=== PATIENT | male | born 1970 | race American Indian/Alaskan Native ===

== ENCOUNTER 2020-12-12 07:27 | Inpatient (IN) | payer OTHER, SELFPAY ==
--- NOTE | 2020-12-12 07:44 | Emergency Department Report ---
ED Shortness of Breath HPI - General Stated Complaint: COVID Time Seen by Provider: 12/12/20 07:31 - History of Present Illness Initial Comments: Patient presents with chest pain shortness of breath. EMS transported him here due to this. He was diagnosed with Covid approximately 2 weeks ago. Patient states that over the last day or 2 he has had substernal chest pain. It is sharp and stabbing. It is pleuritic in nature. The pain does not radiate or migrate. He has had no ongoing cough. Patient states that he just does not feel well. He has no history of recent travel or trauma. There is no pain or swelling in the legs. He has no other complaints other than the chest pain or shortness of breath. He has not noticed any aggravating or alleviating factors other than inspiration. - Related Data Previous Rx's Medication Instructions Recorded Last Taken Type Ibuprofen [Motrin] 600 mg PO Q8H PRN #20 tablet 12/12/20 Unknown Rx Allergies Allergy/AdvReac Type Severity Reaction Status Date / Time No Known Allergies Allergy Unverified 12/12/20 07:49 ED Review of Systems ROS: Stated complaint: COVID Other details as noted in HPI Comment: All other systems reviewed and negative Constitutional: denies: fever Eyes: denies: eye pain ENT: denies: throat pain Respiratory: denies: cough Cardiovascular: as per HPI Endocrine: denies: unexplained weight loss Gastrointestinal: denies: abdominal pain Genitourinary: denies: dysuria Musculoskeletal: denies: back pain Skin: denies: rash Neurological: denies: headache Hematological/Lymphatic: denies: easy bruising ED Past Medical Hx - Past Medical History Previous Medical History?: No - Family History Family history: no significant - Medications Home Medications: Home Medications Medication Instructions Recorded Confirmed Last Taken Type Ibuprofen [Motrin] 600 mg PO Q8H PRN #20 tablet 12/12/20 Unknown Rx ED Physical Exam - General Limitations: No Limitations, Other (Pulse ox is noted and normal. Is not hypox ic.) General appearance: alert, in distress (Mild) - Head Head exam: Present: atraumatic, normocephalic, normal inspection - Eye Eye exam: Present: normal appearance, EOMI. Absent: scleral icterus - ENT ENT exam: Present: normal exam, normal orophraynx, normal external ear exam - Neck Neck exam: Present: normal inspection. Absent: meningismus - Respiratory Respiratory exam: Present: normal lung sounds bilaterally. Absent: respiratory distress, chest wall tenderness - Cardiovascular Cardiovascular Exam: Present: regular rate, normal rhythm - GI/Abdominal GI/Abdominal exam: Present: soft. Absent: distended, tenderness - Extremities Exam Extremities exam: Present: normal capillary refill. Absent: pedal edema, calf tenderness - Back Exam Back exam: Absent: CVA tenderness (R), CVA tenderness (L) - Neurological Exam Neurological exam: Present: alert, oriented X3, CN II-XII intact, normal gait. Absent: motor sensory deficit - Psychiatric Psychiatric exam: Present: normal affect, normal mood - Skin Skin exam: Present: warm, dry ED Course - Reevaluation(s) Reevaluation #1: 12/12/20 07:44 IV and labs ordered. Reevaluation #2: 12/12/20 09:[address] was ordered. Reevaluation #3: 12/12/20 12:38 CT was noted. ED Medical Decision Making - Lab Data Result diagrams: 12/12/20 08:31 12/12/20 08:31 - EKG Data -: EKG Interpreted by Me - EKG Data 12/12/20 09:29 EKG shows a normal sinus rhythm at 89. Intervals are normal including a QRS of 84 and a QT corrected of 454. Patient has T wave inversions diffusely. These include 1, 2, aVL, V2. There is no ST elevation to suggest STEMI. Patient has a Q-wave in lead III. There is no old EKG for comparison. - Radiology Data Radiology results: report reviewed - Medical Decision Making Patient presents with a pleuritic chest pain given the Covid setting. He does not have radiographic evidence of pneumonia or pneumothorax. There is no evidence of pulmonary embolism. He does not have evidence of congestive heart failure. There is no evidence of STEMI or NSTEMI. This is certainly likely related to coronavirus and inflammatory in nature. Patient does not appear to be toxic. We have treated the patient symptomatically. He is feeling better. He can go home at this point. He is not hypoxic. Critical Care Time: No Critical care attestation.: If time is entered above; I have spent that time in minutes in the direct care of this critically ill patient, excluding procedure time. ED Disposition Clinical Impression: Pleuritic chest pain Disposition: HOME / SELF CARE / HOMELESS Is pt being admited?: No Condition: Stable Instructions: Nonspecific Chest Pain, Adult, Pleurodynia Additional Instructions: Drink water. Return for problems. Follow-up with your regular doctor for recheck and further management. Prescriptions: Ibuprofen [Motrin] 600 mg PO Q8H PRN #20 tablet PRN Reason: Pain Referrals: PRIMARY CAREMD [Primary Care Provider] - 3-5 Days KHOA VALADEZ MD [Staff Physician] - 3-5 Days
[2020-12-12] MEDS ORDERED: fentaNYL 100 MCG/2 ML INJ IV SCH (08:00)
[2020-12-12] MEDS ORDERED: ONDANSETRON 4 MG/2 ML INJ IV SCH (08:00)
[2020-12-12 08:45] LABS: Basophils % (Auto) 0.3 % (0.0-1.8); Eosinophils % (Auto) 0.1 % (0.0-4.3); Hematocrit 51.8 % (35.5-45.6); Hemoglobin 17.8 gm/dl (11.8-15.2); Lymphocytes # (Auto) 0.8 K/mm3 (1.2-5.4); Lymphocytes % (Auto) 11.1 % (13.4-35.0); Mean Corpuscular HGB Conc 34 % (32-34); Mean Corpuscular Volume 86 fl (84-94); Monocytes # (Auto) 0.5 K/mm3 (0.0-0.8); Platelet Count 152 K/mm3 (140-440); Red Blood Count 6.07 M/mm3 (3.65-5.03); Red Cell Distribution Width 13.3 % (13.2-15.2)
--- NOTE | 2020-12-12 08:50 | XRay Report ---
CHEST 2 VIEWS INDICATION / CLINICAL INFORMATION: Difficulty breathing. Chest pain. COMPARISON: None available. FINDINGS: SUPPORT DEVICES: None. HEART / MEDIASTINUM: The heart size and pulmonary vasculature are normal. The aorta is normal in bryan yosi. LUNGS / PLEURA: There are mild patchy parenchymal opacities in both mid to lower lung zones. No pleur al effusion or adenopathy. No pneumothorax. ADDITIONAL FINDINGS: No significant additional findings. IMPRESSION: Mild patchy parenchymal opacities in both mid to lower lung zones are nonspecific. Atypic al causes of pneumonia, including viral pneumonia, should be considered. Signer Name: Gaurang Jordan MD Signed: 12/12/2020 8:45 AM Workstation Name: [id number]
[2020-12-12 09:02] LABS: BUN/Creatinine Ratio 16; Blood Urea Nitrogen 16 mg/dL (9-20); Hemolysis Index 6
--- NOTE | 2020-12-12 10:45 | Cat Scan Report ---
CTA CHEST WITH CONTRAST INDICATION : Covid, elevated D-dimer, pleuritic chest pain omni 350 100ml. TECHNIQUE: Axial imaging performed through the chest, with contrast bolus timing set to maximize opa cification of the pulmonary arteries. Sagittal and coronal reformatted images. 3-plane MIP reformatte d images were obtained. All CT scans at this location are performed using CT dose reduction for ALAR A by means of automated exposure control. 100 mL of intravenous contrast administered. COMPARISON: Chest x-ray performed earlier today FINDINGS: Bolus: Contrast bolus timing is adequate. PTE: No filling defect is present to suggest PTE. Mediastinum: Heart and great vessels appear normal. No pathologic mediastinal adenopathy. Lungs: There are mild patchy groundglass airspace densities bilaterally concerning for atypical pneu monia. There is also mild subpleural atelectatic changes in both lower lobes posteriorly. Bones: Degenerative changes in the spine with nothing acute. Upper abdomen: Limited imaging of the upper abdomen shows nothing acute. IMPRESSION: Patchy bilateral groundglass lung opacities are identified concerning for atypical pneumonia. Mild bibasilar atelectatic changes. No pulmonary embolus identified. Signer Name: Eddi Keenan Jr, MD Signed: 12/12/2020 10:40 AM Workstation Name: [id number]
--- NOTE | 2020-12-12 16:43 | Emergency Department Report ---
ED General Adult HPI - General Chief complaint: Dyspnea/Respdistress Stated complaint: COVID PUI?: Yes Time Seen by Provider: 12/12/20 07:31 Source: patient, EMS ( EMS documentation not available at time of chart dictatio n ), RN notes reviewed, old records reviewed Mode of arrival: Stretcher Limitations: Physical Limitation - History of Present Illness Initial comments: The patient was evaluated in the emergency department for symptoms described in the history of present illness. He/she was evaluated in the context of the g lobal COVID-19 pandemic, which necessitated consideration that the patient might be at risk for infection with the virus that causes COVID-19. Institutional protocols and algorithms that pertain to the evaluation of patients at risk for COVID-19 are in a state of rapid change based on information released by regulatory bodies including the CDC and federal and state organizations. These policies and algorithms were followed during the patient's care in the emergency department. Please note that these policies, procedures and recommendations changed on a rapid basis. This patient is a 50-year-old gentleman. During his history and physical, I had on complete personal protective equipment. This patient is not COVID-19 vaccinated. The patient presented to the ER today with a complaint of cough, weakness and shortness of breath. He is about 1 week into his symptoms. He was seen by my colleague and discharged. Prior to being discharged, he was found to be hypoxic to the high 80s. Thus, second opinion is requested. The patient states he is now motivated to get his COVID-19 vaccination -: Gradual, days(s) Location: chest, left, right, upper extremity, lower extremity Radiation: back Severity scale (0 -10): 4 Quality: aching Consistency: constant Improves with: rest Worsens with: movement - Related Data Previous Rx's Medication Instructions Recorded Last Taken Type Ibuprofen [Motrin] 600 mg PO Q8H PRN #20 tablet 12/12/20 Unknown Rx Allergies Allergy/AdvReac Type Severity Reaction Status Date / Time No Known Allergies Allergy Unverified 12/12/20 07:49 ED Review of Systems ROS: Stated complaint: COVID Other details as noted in HPI Constitutional: malaise, weakness Eyes: denies: eye discharge ENT: congestion. denies: epistaxis Respiratory: cough, shortness of breath, SOB with exertion, SOB at rest Cardiovascular: as per HPI, chest pain Endocrine: denies: unexplained weight loss Gastrointestinal: denies: abdominal pain Musculoskeletal: back pain, arthralgia, myalgia Neurological: weakness Psychiatric: anxiety ED Past Medical Hx - Past Medical History Previous Medical History?: No - Surgical History Past Surgical History?: No - Medications Home Medications: Home Medications Medication Instructions Recorded Confirmed Last Taken Type Ibuprofen [Motrin] 600 mg PO Q8H PRN #20 tablet 12/12/20 Unknown Rx ED Physical Exam - General Limitations: No Limitations, Physical Limitation General appearance: alert, anxious, in distress - Head Head exam: Present: atraumatic, normocephalic - Eye Eye exam: Present: normal appearance, EOMI. Absent: nystagmus - ENT ENT exam: Present: normal exam, normal orophraynx, mucous membranes moist, normal external ear exam - Neck Neck exam: Present: normal inspection, full ROM. Absent: tenderness, meningismus - Respiratory Respiratory exam: Present: respiratory distress, accessory muscle use, other (Pulmonary auscultation not performed secondary to lack of disposable stethoscope). Absent: stridor - Cardiovascular Cardiovascular Exam: Present: tachycardia (Seen on cardiac nurse), other (Cardiac auscultation not performed secondary to lack of disposable status) - Rectal Rectal exam: Present: deferred - Extremities Exam Extremities exam: Present: normal inspection, full ROM - Back Exam Back exam: Present: full ROM - Neurological Exam Neurological exam: Present: alert, oriented X3, other (No facial droop. Tongue midline. EOMI. 5-5 strength in 4 extremities) - Psychiatric Psychiatric exam: Present: anxious - Skin Skin exam: Present: normal color ED Course Vital Signs 12/12/20 12/12/20 12/12/20 05:17 05:30 05:46 Temperature Pulse Rate Respiratory Rate Blood Pressure 110/69 110/69 110/69 O2 Sat by Pulse 97 97 97 Oximetry 12/12/20 12/12/20 12/12/20 06:00 06:16 06:30 Temperature Pulse Rate Respiratory Rate Blood Pressure 110/69 116/71 116/71 O2 Sat by Pulse 97 97 97 Oximetry 12/12/20 12/12/20 12/12/20 06:46 07:00 07:16 Temperature Pulse Rate Respiratory Rate Blood Pressure 116/71 116/71 122/63 O2 Sat by Pulse 97 98 97 Oximetry 12/12/20 12/12/20 12/12/20 09:17 09:31 09:45 Temperature Pulse Rate 81 85 Respiratory 30 H 26 H Rate Blood Pressure 122/63 125/90 125/90 O2 Sat by Pulse 99 99 95 Oximetry 12/12/20 12/12/20 12/12/20 10:01 10:23 10:31 Temperature Pulse Rate 88 98 H 98 H Respiratory 31 H 37 H 19 Rate Blood Pressure 121/86 121/86 121/86 O2 Sat by Pulse 97 93 96 Oximetry 12/12/20 12/12/20 12/12/20 10:45 11:01 11:15 Temperature Pulse Rate 87 92 H 92 H Respiratory 28 H 22 24 Rate Blood Pressure 121/86 126/93 121/86 O2 Sat by Pulse 93 93 96 Oximetry 12/12/20 12/12/20 12/12/20 11:31 11:45 12:01 Temperature Pulse Rate 91 H 78 Respiratory 19 40 H 24 Rate Blood Pressure 121/86 121/86 136/101 O2 Sat by Pulse 94 93 95 Oximetry 12/12/20 12/12/20 12/12/20 12:15 12:31 12:45 Temperature Pulse Rate 87 97 H 89 Respiratory 35 H 24 27 H Rate Blood Pressure 136/101 136/101 136/101 O2 Sat by Pulse 95 96 97 Oximetry 12/12/20 12/12/20 12/12/20 13:01 13:15 13:31 Temperature Pulse Rate 87 101 H 90 Respiratory 29 H 34 H 26 H Rate Blood Pressure 146/100 146/100 146/100 O2 Sat by Pulse 95 87 97 Oximetry 12/12/20 12/12/20 12/12/20 13:45 14:01 14:15 Temperature Pulse Rate 90 89 87 Respiratory 29 H 25 H 28 H Rate Blood Pressure 146/100 148/94 146/100 O2 Sat by Pulse 95 97 98 Oximetry 12/12/20 12/12/20 12/12/20 14:31 14:45 15:01 Temperature Pulse Rate 94 H 100 H 93 H Respiratory 26 H 19 26 H Rate Blood Pressure 146/100 146/100 146/98 O2 Sat by Pulse 98 97 96 Oximetry 12/12/20 12/12/20 12/12/20 15:15 15:31 15:45 Temperature Pulse Rate 94 H 90 89 Respiratory 25 H 29 H 30 H Rate Blood Pressure 146/98 146/98 146/98 O2 Sat by Pulse 97 97 95 Oximetry 12/12/20 12/12/20 12/12/20 16:01 16:15 16:31 Temperature Pulse Rate 89 105 H 92 H Respiratory 30 H 19 30 H Rate Blood Pressure 129/98 146/98 146/98 O2 Sat by Pulse 98 94 96 Oximetry 12/12/20 12/12/20 12/12/20 16:45 17:01 17:15 Temperature Pulse Rate 99 H 92 H 93 H Respiratory 15 29 H 27 H Rate Blood Pressure 146/98 146/115 146/115 O2 Sat by Pulse 86 89 96 Oximetry 12/12/20 12/12/20 12/12/20 17:31 17:40 17:43 Temperature 99.6 F Pulse Rate 98 H Respiratory 24 Rate Blood Pressure 146/115 O2 Sat by Pulse 94 95 Oximetry ED Medical Decision Making - Lab Data Result diagrams: 12/12/20 08:31 12/12/20 16:59 Vital Signs 12/12/20 12/12/20 12/12/20 05:17 05:30 05:46 Temperature Pulse Rate Respiratory Rate Blood Pressure 110/69 110/69 110/69 O2 Sat by Pulse 97 97 97 Oximetry 12/12/20 12/12/20 12/12/20 06:00 06:16 06:30 Temperature Pulse Rate Respiratory Rate Blood Pressure 110/69 116/71 116/71 O2 Sat by Pulse 97 97 97 Oximetry 12/12/20 12/12/20 12/12/20 06:46 07:00 07:16 Temperature Pulse Rate Respiratory Rate Blood Pressure 116/71 116/71 122/63 O2 Sat by Pulse 97 98 97 Oximetry 12/12/20 12/12/20 12/12/20 09:17 09:31 09:45 Temperature Pulse Rate 81 85 Respiratory 30 H 26 H Rate Blood Pressure 122/63 125/90 125/90 O2 Sat by Pulse 99 99 95 Oximetry 12/12/20 12/12/20 12/12/20 10:01 10:23 10:31 Temperature Pulse Rate 88 98 H 98 H Respiratory 31 H 37 H 19 Rate Blood Pressure 121/86 121/86 121/86 O2 Sat by Pulse 97 93 96 Oximetry 12/12/20 12/12/20 12/12/20 10:45 11:01 11:15 Temperature Pulse Rate 87 92 H 92 H Respiratory 28 H 22 24 Rate Blood Pressure 121/86 126/93 121/86 O2 Sat by Pulse 93 93 96 Oximetry 12/12/20 12/12/20 12/12/20 11:31 11:45 12:01 Temperature Pulse Rate 91 H 78 Respiratory 19 40 H 24 Rate Blood Pressure 121/86 121/86 136/101 O2 Sat by Pulse 94 93 95 Oximetry 12/12/20 12/12/20 12/12/20 12:15 12:31 12:45 Temperature Pulse Rate 87 97 H 89 Respiratory 35 H 24 27 H Rate Blood Pressure 136/101 136/101 136/101 O2 Sat by Pulse 95 96 97 Oximetry 12/12/20 12/12/20 12/12/20 13:01 13:15 13:31 Temperature Pulse Rate 87 101 H 90 Respiratory 29 H 34 H 26 H Rate Blood Pressure 146/100 146/100 146/100 O2 Sat by Pulse 95 87 97 Oximetry 12/12/20 12/12/20 12/12/20 13:45 14:01 14:15 Temperature Pulse Rate 90 89 87 Respiratory 29 H 25 H 28 H Rate Blood Pressure 146/100 148/94 146/100 O2 Sat by Pulse 95 97 98 Oximetry 12/12/20 12/12/20 12/12/20 14:31 14:45 15:01 Temperature Pulse Rate 94 H 100 H 93 H Respiratory 26 H 19 26 H Rate Blood Pressure 146/100 146/100 146/98 O2 Sat by Pulse 98 97 96 Oximetry 12/12/20 12/12/20 12/12/20 15:15 15:31 15:45 Temperature Pulse Rate 94 H 90 89 Respiratory 25 H 29 H 30 H Rate Blood Pressure 146/98 146/98 146/98 O2 Sat by Pulse 97 97 95 Oximetry 12/12/20 12/12/20 12/12/20 16:01 16:15 16:31 Temperature Pulse Rate 89 105 H 92 H Respiratory 30 H 19 30 H Rate Blood Pressure 129/98 146/98 146/98 O2 Sat by Pulse 98 94 96 Oximetry 12/12/20 12/12/20 12/12/20 16:45 17:01 17:15 Temperature Pulse Rate 99 H 92 H 93 H Respiratory 15 29 H 27 H Rate Blood Pressure 146/98 146/115 146/115 O2 Sat by Pulse 86 89 96 Oximetry 12/12/20 12/12/20 12/12/20 17:31 17:40 17:43 Temperature 99.6 F Pulse Rate 98 H Respiratory 24 Rate Blood Pressure 146/115 O2 Sat by Pulse 94 95 Oximetry Lab Results 12/12/20 12/12/20 12/12/20 Range/Units 08:31 08:31 08:31 WBC 6.8 (4.5-11.0) K/mm3 RBC 6.07 H (3.65-5.03) M/mm3 Hgb 17.8 H (11.8-15.2) gm/dl Hct 51.8 H (35.5-45.6) % MCV 86 (84-94) fl MCH 29 (28-32) pg MCHC 34 (32-34) % RDW 13.3 (13.2-15.2) % Plt Count 152 (140-440) K/mm3 Lymph % (Auto) 11.1 L (13.4-35.0) % [place] % (Auto) 7.0 (0.0-7.3) % Eos % (Auto) 0.1 (0.0-4.3) % Baso % (Auto) 0.3 (0.0-1.8) % Lymph # (Auto) 0.8 L (1.2-5.4) K/mm3 [place] # (Auto) 0.5 (0.0-0.8) K/mm3 Eos # (Auto) 0.0 (0.0-0.4) K/mm3 Baso # (Auto) 0.0 (0.0-0.1) K/mm3 Seg Neutrophils % 81.5 H (40.0-70.0) % Seg Neutrophils # 5.6 (1.8-7.7) K/mm3 D-Dimer 570.82 H (0-234) ng/mlDDU Sodium 137 (137-145) mmol/L Potassium 4.3 (3.6-5.0) mmol/L Chloride 98.5 (98-107) mmol/L Carbon Dioxide 24 (22-30) mmol/L Anion Gap 19 mmol/L BUN 16 (9-20) mg/dL Creatinine 1.0 (0.8-1.3) mg/dL Estimated GFR > 60 ml/min BUN/Creatinine Ratio 16 % Glucose 105 H (75-100) mg/dL Calcium 9.0 (8.4-10.2) mg/dL Troponin T < 0.010 (0.00-0.029) ng/mL - EKG Data -: EKG Interpreted by Me EKG shows normal: sinus rhythm Rate: normal - EKG Data When compared to previous EKG there are: previous EKG unavailable 12/12/20 18:27 The EKG is interpreted by myself at 18: 27 Sinus rhythm, 89 bpm. Normal axis. QTC 454 ms. Abnormal T wave inversions 1, aVL, V2. Low voltage in the lateral leads. There is normal P wave axis. This is an abnormal EKG. This is not a STEMI. - Radiology Data Radiology results: pending, report reviewed, image reviewed CHEST 2 VIEWS INDICATION / CLINICAL INFORMATION: Difficulty breathing. Chest pain. COMPARISON: None available. FINDINGS: SUPPORT DEVICES: None. HEART / MEDIASTINUM: The heart size and pulmonary vasculature are normal. The aorta is normal in caliber. LUNGS / PLEURA: There are mild patchy parenchymal opacities in both mid to lower lung zones. No pleural effusion or adenopathy. No pneumothorax. ADDITIONAL FINDINGS: No significant additional findings. IMPRESSION: Mild patchy parenchymal opacities in both mid to lower lung zones are nonspecific. Atypical causes of pneumonia, including viral pneumonia, should be considered. Signer Name: Gaurang Jordan MD Signed: 12/12/2020 7:45 AM Workstation Name: [id number] CTA CHEST WITH CONTRAST INDICATION : Covid, elevated D-dimer, pleuritic chest pain omni 350 100ml. TECHNIQUE: Axial imaging performed through the chest, with contrast bolus timing set to maximize opacification of the pulmonary arteries. Sagittal and coronal reformatted images. 3-plane MIP reformatted images were obtained. All CT scans at this location are performed using CT dose reduction for ALARA by means of automated exposure control. 100 mL of intravenous contrast administered. COMPARISON: Chest x-ray performed earlier today FINDINGS: Bolus: Contrast bolus timing is adequate. PTE: No filling defect is present to suggest PTE. Mediastinum: Heart and great vessels appear normal. No pathologic mediastinal adenopathy. Lungs: There are mild patchy groundglass airspace densities bilaterally concerning for atypical pneumonia. There is also mild subpleural atelectatic changes in both lower lobes posteriorly. Bones: Degenerative changes in the spine with nothing acute. Upper abdomen: Limited imaging of the upper abdomen shows nothing acute. IMPRESSION: Patchy bilateral groundglass lung opacities are identified concerning for atypical pneumonia. Mild bibasilar atelectatic changes. No pulmonary embolus identified. Signer Name: Eddi Keenan Jr, MD Signed: 12/12/2020 9:40 AM - Medical Decision Making Differential diagnosis, including not limited to: Pneumonia, COVID-19, COVID-19 vaccination not done, hypoxic respiratory failure Assessment and plan: 50-year-old gentleman with hypoxic respiratory failure, and history, physical, and diagnostic studies all suggestive of COVID-19. The patient meets criteria for admission secondary to the aforementioned. He will be placed on high flow high humidity nasal cannula. IV fluids, pain medication, steroids and antibiotics ordered. I discussed this plan of care with the patient. They verbalized understanding. He is agreeable to admission hospitalization. Hospital physician, Dr. Ling, to admit patient to the medical service. Critical care attestation.: If time is entered above; I have spent that time in minutes in the direct care of this critically ill patient, excluding procedure time. ED Disposition Clinical Impression: Pleuritic chest pain, Acute respiratory failure with hypoxia, Suspected 2019- nCoV infection, COVID-19 vaccination not done Disposition: ADMITTED INPATIENT Is pt being admited?: Yes Does the pt Need Aspirin: No Condition: Fair
[2020-12-12] MEDS ORDERED: HYDROmorphone 1 MG/1 ML INJ IV PRN (16:50)
[2020-12-12] MEDS ORDERED: ACETAMINOPHEN 325 MG TAB PO PRN (16:50)
[2020-12-12] MEDS ORDERED: cefTRIAXone/NS 1 GM/50 ML 1 GM/50 ML BAG IV ONE (16:50)
[2020-12-12] MEDS ORDERED: dexAMETHasone 4 MG/ML VIAL IV ONE (16:50)
[2020-12-12] MEDS ORDERED: ONDANSETRON 4 MG/2 ML INJ IV PRN (16:50)
[2020-12-12] MEDS ORDERED: ACETAMINOPHEN 500 MG TAB PO ONE (16:50)
[2020-12-12] MEDS ORDERED: ALBUTEROL 2.5 MG/3 ML NEBU IH PRN (16:50)
[2020-12-12] MEDS ORDERED: AZITHROMYCIN/NS 500 MG/250 ML 500 MG/250 ML BAG IV ONE (16:50)
[2020-12-12] MEDS ORDERED: SODIUM CHLORIDE 0.9% 1000 ML 1,000 ML IV ONE (16:52)
--- NOTE | 2020-12-12 16:53 | History and Physical Report ---
History of Present Illness Chief complaint: It is hard to breathe History of present illness: 50 YO Male with Coronavirus Infection diagnosed 2 weeks ago presents to ED for evaluation. Patient reports "it is hard for me to breathe". Patient states that he has experienced shortness of breath over the past 2 weeks with worsening symptoms over the past 2 days. Patient acknowledges chest discomfort associated with deep breathing, fatigue, malaise, decreased exercise tolerance, dry cough, diminished sense of smell, diminished sense of taste. Patient was seen and evaluated at [facility] 2 days ago and discharged home with outpatient therapy. Patient knowledges compliance with therapy with persistent and worsening symptoms. EMS was notified and upon arrival the patient was found to be in distress with a pulse oximetry of 82% on room air. The patient was placed on nonrebreather mask and transported to [facility] for further care and evaluation of the aforementioned symptoms. The patient was seen and evaluated in the emergency department. All lab and imaging studies reviewed. Chest x-ray and CT chest revealed bilateral pneumonia. Patient found to have a pulse oximetry of 82% on room air with exertion which is consistent with acute hypoxemic respiratory failure. Patient admitted to medical floor and initiated on pneumonia protocol as well as coronavirus protocol. Patient denies fever, chills, palpitation, skin rash, recent ill contacts, trauma, unilateral leg swelling, calf pain, prolonged travel/immobility, individual/family history of DVT/PE/bleeding/blood clotting disorders. No prior admission for review. No medication listed at time of admission for reconciliation. Past History Past Medical History: other (See HPI) Past Surgical History: No surgical history, Other (Reviewed) Social history: single. denies: smoking, alcohol abuse, prescription drug abuse Family history: hypertension Medications and Allergies Allergies Allergy/AdvReac Type Severity Reaction Status Date / Time No Known Allergies Allergy Unverified 12/12/20 07:49 Home Medications Medication Instructions Recorded Confirmed Last Taken Type Ibuprofen [Motrin] 600 mg PO Q8H PRN #20 tablet 12/12/20 Unknown Rx Active Meds: Active Medications Acetaminophen (Acetaminophen 325 Mg Tab) 650 mg PO Q4H PRN PRN Reason: Pain MILD(1-3)/Fever >100.5/STEWART Albuterol (Albuterol 2.5 Mg/3 Ml Nebu) 2.5 mg IH Q4HRT PRN PRN Reason: Shortness Of Breath Ascorbic Acid (Ascorbic Acid 500 Mg Tab) 500 mg PO BID [facility] Cholecalciferol (Cholecalciferol (Vit D3) 400 Unit Tab) 1,000 unit PO QDAY [facility] Heparin Sodium (Porcine) (Heparin 5,000 Unit/1 Ml Vial) 5,000 unit SUB-Q Q12HR [facility] Hydromorphone HCl (Hydromorphone 1 Mg/1 Ml Inj) 0.5 mg IV Q23H PRN PRN Reason: Pain , Severe (7-10) Ceftriaxone Sodium (Rocephin/Ns 2 Gm/100 Ml) 2 gm in 100 mls @ 200 mls/hr IV Q24H PRANAV; Protocol Azithromycin (Zithromax/Ns) 500 mg in 250 mls @ 250 mls/hr IV Q24H PRANAV; Protocol Methylprednisolone Sodium Succinate (Methylprednisolone Sod Succinate 40 Mg/1 Ml Inj) 40 mg IV Q8HR PRANAV Ondansetron HCl (Ondansetron 4 Mg/2 Ml Inj) 4 mg IV Q8H PRN PRN Reason: Nausea And Vomiting Oxycodone/Acetaminophen (Oxycodone /Acetaminophen 5-325mg Tab) 1 tab PO Q16H PRN PRN Reason: Pain, Moderate (4-6) Sodium Chloride (Sodium Chloride 0.9% 10 Ml Flush Syringe) 10 ml IV BID [facility] Sodium Chloride (Sodium Chloride 0.9% 10 Ml Flush Syringe) 10 ml IV PRN PRN PRN Reason: LINE FLUSH Zinc Sulfate (Zinc Sulfate 220 Mg Cap) 220 mg PO BID [facility] Review of Systems Constitutional: weakness, malaise, lethargy, no fever, no chills Ears, nose, mouth and throat: other (Diminished sense of smell, diminished sense of taste), no ear pain, no tinnitis, no decreased hearing, no nose pain, no nasal congestion Cardiovascular: orthopnea, shortness of breath, decreased exercise tolerance, no chest pain Respiratory: cough, shortness of breath, no excessive sputum, no hemoptysis Gastrointestinal: no abdominal pain, no nausea, no vomiting, no diarrhea, no constipation, no change in bowel habits Genitourinary Male: no hematuria, no flank pain, no discharge, no urinary frequency, no urinary hesitancy Rectal: no pain, no incontinence, no bleeding Musculoskeletal: no neck stiffness, no neck pain, no shooting arm pain, no arm numbness/tingling, no low back pain, no shooting leg pain Integumentary: no rash, no pruritis, no redness, no sores, no wounds Neurological: no head injury, no transient paralysis, no paralysis, no weakness, no numbness, no tingling, no seizures, no syncope Psychiatric: no anxiety, no memory loss, no sleep disturbances, no insomnia, no change in appetite, no suicidal ideation Endocrine: no cold intolerance, no heat intolerance, no excessive thirst, no polydipsia, no polyuria, no nocturia, no flushing Hematologic/Lymphatic: no easy bruising, no lymphedema Allergic/Immunologic: no urticaria, no allergic rhinitis, no wheezing, no persistent infections, no anaphylaxis Exam - Constitutional Vitals: Temp Pulse Resp BP Pulse Ox 89 30 H 129/98 98 12/12/20 16:01 12/12/20 16:01 12/12/20 16:01 12/12/20 16:01 General appearance: Present: mild distress - EENT Eyes: Present: PERRL ENT: hearing intact, clear oral mucosa - Neck Neck: Present: supple, normal ROM - Respiratory Respiratory effort: labored, accessory muscle use Respiratory: bilateral: diminished, rhonchi - Cardiovascular Heart Sounds: Present: S1 & S2. Absent: rub, click - Extremities Extremities: pulses symmetrical, No edema Peripheral Pulses: within normal limits - Abdominal General gastrointestinal: Present: soft, non-tender, non-distended, normal bowel sounds Male genitourinary: Present: normal - Integumentary Integumentary: Present: clear, warm, dry - Musculoskeletal Musculoskeletal: gait normal, strength equal bilaterally - Psychiatric Psychiatric: appropriate mood/affect, intact judgment & insight - Neurologic Neurologic: CNII-XII intact, moves all extremities HEART Score - HEART Score Troponin: Troponin T < 0.010 ng/mL (0.00-0.029) 12/12/20 08:31 Results - Labs CBC & Chem 7: 12/12/20 08:31 12/12/20 16:59 Labs: Abnormal lab results 12/12/20 12/12/20 12/12/20 Range/Units 08:31 08:31 08:31 RBC 6.07 H (3.65-5.03) M/mm3 Hgb 17.8 H (11.8-15.2) gm/dl Hct 51.8 H (35.5-45.6) % Lymph % (Auto) 11.1 L (13.4-35.0) % Lymph # (Auto) 0.8 L (1.2-5.4) K/mm3 Seg Neutrophils % 81.5 H (40.0-70.0) % D-Dimer 570.82 H (0-234) ng/mlDDU Glucose 105 H (75-100) mg/dL Assessment and Plan - Patient Problems (1) Acute respiratory failure with hypoxia Current Visit: Yes Status: Acute Plan to address problem: Chest x-ray, CT chest, supplemental oxygen, pulse oximetry, nebulizer therapy, proposition while in bed, early ambulation, pulmonary toilet. (2) Coronavirus infection Current Visit: Yes Status: Acute Plan to address problem: Coronavirus protocol: IV antibiotic therapy, IV steroid therapy, supplemental oxygen, pulse oximetry, vitamin C therapy, vitamin D therapy, zinc therapy, prophylactic anticoagulation (3) COVID-19 vaccination not done Current Visit: Yes Status: Acute Plan to address problem: Patient counseled. (4) DVT prophylaxis Current Visit: Yes Status: Acute Plan to address problem: SCD to bilateral lower extremities while in bed, prophylactic anticoagulation (5) Advance care planning Current Visit: Yes Status: Acute Plan to address problem: Disease education conducted, care plan discussed, diagnoses discussed, prognosis discussed, patient is full code, patient knowledges understanding and agreement with care plan.
[2020-12-12] MEDS ORDERED: cefTRIAXone/NS 2 GM/100 ML 2 GM/100 ML BAG IV SCH (17:30)
[2020-12-12 18:11] LABS: C-Reactive Protein 4.7 mg/dL (0.00-1.30)
[2020-12-12] MEDS: methylPREDNISolone Sod Succinate 40 MG/1 ML INJ IV SCH (19:50)
[2020-12-12] MEDS: oxyCODONE /ACETAMINOPHEN 5-325MG TAB PO PRN (21:43)
[2020-12-12] MEDS: HEPARIN 5,000 UNIT/1 ML VIAL SUB-Q SCH (21:43)
[2020-12-12] MEDS: ASCORBIC ACID 500 MG TAB PO SCH (21:44)
[2020-12-12] MEDS: ZINC SULFATE 220 MG CAP PO SCH (21:46)
[2020-12-13] MEDS: methylPREDNISolone Sod Succinate 40 MG/1 ML INJ IV SCH ×3 (02:09→21:16)
[2020-12-13 05:53] LABS: Basophils % (Auto) 0.2 % (0.0-1.8); Hematocrit 47.5 % (35.5-45.6); Hemoglobin 16.1 gm/dl (11.8-15.2); Lymphocytes # (Auto) 0.5 K/mm3 (1.2-5.4); Lymphocytes % (Auto) 12.7 % (13.4-35.0); Mean Corpuscular HGB Conc 34 % (32-34); Mean Corpuscular Volume 86 fl (84-94); Monocytes # (Auto) 0.3 K/mm3 (0.0-0.8); Monocytes % (Auto) 7.4 % (0.0-7.3); Red Blood Count 5.51 M/mm3 (3.65-5.03); Red Cell Distribution Width 13.3 % (13.2-15.2)
[2020-12-13 05:58] LABS: Platelet Count 147 K/mm3 (140-440)
[2020-12-13 06:14] LABS: BUN/Creatinine Ratio 18; Blood Urea Nitrogen 18 mg/dL (9-20); Calcium 8.7 mg/dL (8.4-10.2); Hemolysis Index 10
[2020-12-13] MEDS: ZINC SULFATE 220 MG CAP PO SCH ×3 (08:21→22:06)
[2020-12-13] MEDS: ASCORBIC ACID 500 MG TAB PO SCH ×3 (08:21→22:06)
[2020-12-13] MEDS: CHOLECALCIFEROL (VIT D3) 1000 UNIT (25 mcg) TAB PO SCH ×2 (08:21→10:00)
[2020-12-13] MEDS: HEPARIN 5,000 UNIT/1 ML VIAL SUB-Q SCH ×3 (08:22→22:16)
--- NOTE | 2020-12-13 10:04 | Progress Note ---
Assessment and Plan Assessment and plan: 50 YO Male with Coronavirus Infection diagnosed 2 weeks ago presents to ED for evaluation. Patient reports "it is hard for me to breathe". Patient states that he has experienced shortness of breath over the past 2 weeks with worsening symptoms over the past 2 days. Patient acknowledges chest discomfort associated with deep breathing, fatigue, malaise, decreased exercise tolerance, dry cough, diminished sense of smell, diminished sense of taste. Patient was seen and evaluated at [facility] 2 days ago and discharged home with outpatient therapy. Patient knowledges compliance with therapy with persistent and worsening symptoms. EMS was notified and upon arrival the patient was found to be in di stress with a pulse oximetry of 82% on room air. The patient was placed on nonrebreather mask and transported to [facility] for further care and evaluation of the aforementioned symptoms. The patient was seen and evaluated in the emergency department. All lab and imaging studies reviewed. Chest x-ray and CT chest revealed bilateral pneumonia. Patient found to have a pulse oximetry of 82% on room air with exertion which is consistent with acute hypoxemic respiratory failure. Patient admitted to medical floor and initiated on pneumonia protocol as well as coronavirus protocol. Patient denies fever, chills, palpitation, skin rash, recent ill contacts, trauma, unilateral leg swelling, calf pain, prolonged travel/immobility, individual/family history of DVT/PE/bleeding/blood clotting disorders. No prior admission for review. No medication listed at time of admission for reconciliation. 12/13: CTA of the chest shows bilateral patchy opacities with no pulmonary embolism. D-dimer still elevated. His oxygen has come down to 2 L and satting 94% at rest in the room. Pulmonary and ID consulted we will continue steroid therapy at current dose. Anticipate discharge soon. Is probably out of the window for remdesivir at this time. Monitor inflammatory markers (1) Acute respiratory failure with hypoxia Current Visit: Yes Status: Acute Plan to address problem: Chest x-ray, CT chest, supplemental oxygen, pulse oximetry, nebulizer therapy, proposition while in bed, early ambulation, pulmonary toilet. (2) Coronavirus infection Current Visit: Yes Status: Acute Plan to address problem: Coronavirus protocol: IV antibiotic therapy, IV steroid therapy, supplemental oxygen, pulse oximetry, vitamin C therapy, vitamin D therapy, zinc therapy, prophylactic anticoagulation (3) COVID-19 vaccination not done Current Visit: Yes Status: Acute Plan to address problem: Patient counseled. (4) DVT prophylaxis Current Visit: Yes Status: Acute Plan to address problem: SCD to bilateral lower extremities while in bed, prophylactic anticoagulation (5) Advance care planning Current Visit: Yes Status: Acute Plan to address problem: Disease education conducted, care plan discussed, diagnoses discussed, prognosis discussed, patient is full code, patient knowledges understanding and agreement with care plan. History Interval history: Patient seen and examined this morning states that he feels like he is improving. Remains on oxygen at 2 L at this time satting 92% Hospitalist Physical - Physical exam Narrative exam: VITAL SIGNS: Reviewed. GENERAL: The patient appears normally developed, Vital signs as documented. HEAD: No signs of head trauma. EYES: Pupils are equal. Extraocular motions intact. EARS: Hearing grossly intact. MOUTH: Oropharynx is normal. NECK: No adenopathy, no JVD. CHEST: Chest with diminished breath sounds bilaterally. No wheezes, rales, or rhonchi. CARDIAC: Regular rate and rhythm. S1 and S2, without murmurs, gallops, or rubs. VASCULAR: No Edema. Peripheral pulses normal and equal in all extremities. ABDOMEN: Soft, non tender and non distended. No rebound or guarding, and no masses palpated. Bowel Sounds normal. MUSCULOSKELETAL: Good range of motion of all major joints. Extremities without clubbing, cyanosis or edema. NEUROLOGIC EXAM: Alert and oriented x 3 No focal sensory or strength deficits. Speech normal. Follows commands. PSYCHIATRIC: Mood normal. SKIN: detail exam as documented in skin assessment - Constitutional Vitals: Temp Pulse Resp BP Pulse Ox 98.5 F 79 20 129/91 95 12/13/20 03:10 12/13/20 03:10 12/13/20 03:10 12/13/20 03:10 12/13/20 09:33 General appearance: Present: mild distress HEART Score - HEART Score Troponin: Troponin T < 0.010 ng/mL (0.00-0.029) 12/12/20 08:31 Results - Labs CBC & Chem 7: 12/13/20 05:10 12/13/20 05:10 Labs: Laboratory Last Values WBC 4.0 K/mm3 (4.5-11.0) L 12/13/20 05:10 RBC 5.51 M/mm3 (3.65-5.03) H 12/13/20 05:10 Hgb 16.1 gm/dl (11.8-15.2) H 12/13/20 05:10 Hct 47.5 % (35.5-45.6) H 12/13/20 05:10 MCV 86 fl (84-94) 12/13/20 05:10 MCH 29 pg (28-32) 12/13/20 05:10 MCHC 34 % (32-34) 12/13/20 05:10 RDW 13.3 % (13.2-15.2) 12/13/20 05:10 Plt Count 147 K/mm3 (140-440) 12/13/20 05:10 Lymph % (Auto) 12.7 % (13.4-35.0) L 12/13/20 05:10 [place] % (Auto) 7.4 % (0.0-7.3) H 12/13/20 05:10 Eos % (Auto) 0.0 % (0.0-4.3) 12/13/20 05:10 Baso % (Auto) 0.2 % (0.0-1.8) 12/13/20 05:10 Lymph # (Auto) 0.5 K/mm3 (1.2-5.4) L 12/13/20 05:10 [place] # (Auto) 0.3 K/mm3 (0.0-0.8) 12/13/20 05:10 Eos # (Auto) 0.0 K/mm3 (0.0-0.4) 12/13/20 05:10 Baso # (Auto) 0.0 K/mm3 (0.0-0.1) 12/13/20 05:10 Seg Neutrophils % 79.7 % (40.0-70.0) H 12/13/20 05:10 Seg Neutrophils # 3.2 K/mm3 (1.8-7.7) 12/13/20 05:10 D-Dimer 457.82 ng/mlDDU (0-234) H 12/12/20 16:59 Sodium 139 mmol/L (137-145) 12/13/20 05:10 Potassium 4.4 mmol/L (3.6-5.0) 12/13/20 05:10 Chloride 103.3 mmol/L (98-107) 12/13/20 05:10 Carbon Dioxide 23 mmol/L (22-30) 12/13/20 05:10 Anion Gap 17 mmol/L 12/13/20 05:10 BUN 18 mg/dL (9-20) 12/13/20 05:10 Creatinine 1.0 mg/dL (0.8-1.3) 12/13/20 05:10 Estimated GFR > 60 ml/min 12/13/20 05:10 BUN/Creatinine Ratio 18 % 12/13/20 05:10 Glucose 181 mg/dL (75-100) H 12/13/20 05:10 Lactic Acid 1.00 mmol/L (0.7-2.0) 12/12/20 16:59 Calcium 8.7 mg/dL (8.4-10.2) 12/13/20 05:10 Ferritin 2805.0 ng/mL (30.0-300.0) H 12/12/20 16:59 Lactate Dehydrogenase 331 units/L (91-180) H 12/12/20 16:59 Troponin T < 0.010 ng/mL (0.00-0.029) 12/12/20 08:31 C-Reactive Protein 4.70 mg/dL (0.00-1.30) H 12/12/20 16:59 Procalcitonin 0.06 ng/mL (<0.15) 12/12/20 16:59 Microbiology: Microbiology 12/12/20 16:59 Peripheral/Venous Blood Culture - Preliminary Culture in Progress 12/12/20 17:06 Peripheral/Venous Blood Culture - Preliminary Culture in Progress Gutierrez/IV: Voiding Method Urinal Active Medications - Current Medications Current Medications: Generic Name Dose Route Start Last Admin Trade Name Freq PRN Reason Stop Dose Admin Acetaminophen 650 mg 12/12/20 16:50 12/12/20 21:44 Acetaminophen 325 Mg Tab PO 650 mg Q4H PRN Administration Pain MILD(1-3)/Fever >100.5/STEWART Albuterol 2.5 mg 12/12/20 16:50 Albuterol 2.5 Mg/3 Ml Nebu IH Q4HRT PRN Shortness Of Breath Ascorbic Acid 500 mg 12/12/20 22:00 12/13/20 08:21 Ascorbic Acid 500 Mg Tab PO 500 mg BID PRANAV Administration Cholecalciferol 1,000 unit 12/13/20 10:00 12/13/20 08:21 Cholecalciferol (Vit D3) 1000 Unit (25 Mcg) Tab PO 1,000 unit QDAY PRANAV Administration Heparin Sodium (Porcine) 5,000 unit 12/12/20 22:00 12/13/20 08:22 Heparin 5,000 Unit/1 Ml Vial SUB-Q 5,000 unit Q12H PRANAV Administration Hydromorphone HCl 0.5 mg 12/12/20 16:50 Hydromorphone 1 Mg/1 Ml Inj IV Q23H PRN Pain , Severe (7-10) Ceftriaxone Sodium 2 gm in 100 mls @ 200 mls/hr 12/12/20 17:30 12/12/20 19:20 Rocephin/Ns 2 Gm/100 Ml IV 12/16/20 17:59 200 mls/hr Q24H PRANAV Administration Protocol Azithromycin 500 mg in 250 mls @ 250 mls/hr 12/13/20 17:00 Zithromax/Ns IV 12/16/20 17:59 Q24H PRANAV Protocol Methylprednisolone Sodium Succinate 40 mg 12/12/20 18:00 12/13/20 02:09 Methylprednisolone Sod Succinate 40 Mg/1 Ml Inj IV 40 mg Q8H PRANAV Administration Ondansetron HCl 4 mg 12/12/20 16:50 Ondansetron 4 Mg/2 Ml Inj IV Q8H PRN Nausea And Vomiting Oxycodone/Acetaminophen 1 tab 12/12/20 16:50 12/12/20 21:43 Oxycodone /Acetaminophen 5-325mg Tab PO 1 tab Q16H PRN Administration Pain, Moderate (4-6) Sodium Chloride 10 ml 12/12/20 22:00 12/12/20 21:45 Sodium Chloride 0.9% 10 Ml Flush Syringe IV 10 ml BID PRANAV Administration Sodium Chloride 10 ml 12/12/20 16:50 Sodium Chloride 0.9% 10 Ml Flush Syringe IV PRN PRN LINE FLUSH Zinc Sulfate 220 mg 12/12/20 22:00 12/13/20 08:21 Zinc Sulfate 220 Mg Cap PO 220 mg BID PRANAV Administration
--- NOTE | 2020-12-13 15:41 | Consultation ---
History of Present Illness Consult date: 12/13/20 Requesting physician: THO PERALTA Reason for consult: hypoxemia, other (COVID) History of present illness: 50 y/o male with known COVID positive state admitted with acute respiratory failure. Past History Past Medical History: other (See HPI) Past Surgical History: No surgical history, Other (Reviewed) Social history: single. denies: smoking, alcohol abuse, prescription drug abuse Family history: hypertension Medications and Allergies Allergies Allergy/AdvReac Type Severity Reaction Status Date / Time No Known Allergies Allergy Verified 12/13/20 05:44 Home Medications Medication Instructions Recorded Confirmed Last Taken Type Apixaban [Eliquis] 5 mg PO BID #30 tablet 12/14/20 Unknown Rx Ascorbic Acid [Vitamin C] 500 mg PO BID #60 tablet 12/14/20 Unknown Rx Cholecalciferol Vit D3 [Vitamin D3 1,000 unit PO QDAY #30 tablet 12/14/20 Unknown Rx 1,000 UNIT TAB] Zinc Sulfate 220 mg PO BID #30 capsule 12/14/20 Unknown Rx dexAMETHasone [Dexamethasone] 6 mg PO DAILY #10 tablet 12/14/20 Unknown Rx Active Meds: Active Medications Acetaminophen (Acetaminophen 325 Mg Tab) 650 mg PO Q4H PRN PRN Reason: Pain MILD(1-3)/Fever >100.5/STEWART Last Admin: 12/12/20 21:44 Dose: 650 mg Documented by: Albuterol (Albuterol 2.5 Mg/3 Ml Nebu) 2.5 mg IH Q4HRT PRN PRN Reason: Shortness Of Breath Ascorbic Acid (Ascorbic Acid 500 Mg Tab) 500 mg PO BID [facility] Last Admin: 12/13/20 08:21 Dose: 500 mg Documented by: Cholecalciferol (Cholecalciferol (Vit D3) 1000 Unit (25 Mcg) Tab) 1,000 unit PO QDAY [facility] Last Admin: 12/13/20 08:21 Dose: 1,000 unit Documented by: Heparin Sodium (Porcine) (Heparin 5,000 Unit/1 Ml Vial) 5,000 unit SUB-Q Q12H [facility] Last Admin: 12/13/20 08:22 Dose: 5,000 unit Documented by: Hydromorphone HCl (Hydromorphone 1 Mg/1 Ml Inj) 0.5 mg IV Q23H PRN PRN Reason: Pain , Severe (7-10) Ceftriaxone Sodium (Rocephin/Ns 2 Gm/100 Ml) 2 gm in 100 mls @ 200 mls/hr IV Q24H [facility]; Protocol Stop: 12/16/20 17:59 Last Admin: 12/12/20 19:20 Dose: 200 mls/hr Documented by: Azithromycin (Zithromax/Ns) 500 mg in 250 mls @ 250 mls/hr IV Q24H PRANAV; Protocol Stop: 12/16/20 17:59 Methylprednisolone Sodium Succinate (Methylprednisolone Sod Succinate 40 Mg/1 Ml Inj) 40 mg IV Q8H [facility] Last Admin: 12/13/20 02:09 Dose: 40 mg Documented by: Ondansetron HCl (Ondansetron 4 Mg/2 Ml Inj) 4 mg IV Q8H PRN PRN Reason: Nausea And Vomiting Oxycodone/Acetaminophen (Oxycodone /Acetaminophen 5-325mg Tab) 1 tab PO Q16H PRN PRN Reason: Pain, Moderate (4-6) Last Admin: 12/12/20 21:43 Dose: 1 tab Documented by: Sodium Chloride (Sodium Chloride 0.9% 10 Ml Flush Syringe) 10 ml IV BID [facility] Last Admin: 12/12/20 21:45 Dose: 10 ml Documented by: Sodium Chloride (Sodium Chloride 0.9% 10 Ml Flush Syringe) 10 ml IV PRN PRN PRN Reason: LINE FLUSH Zinc Sulfate (Zinc Sulfate 220 Mg Cap) 220 mg PO BID [facility] Last Admin: 12/13/20 08:21 Dose: 220 mg Documented by: Review of Systems All systems: negative Physical Examination Vital signs: Vital Signs BP Pulse Ox 110/69 97 12/12/20 05:17 12/12/20 05:17 General appearance: no acute distress, alert Eyes: non-icteric Neck: supple Effort: normal Ascultation: Bilateral: clear Results - Laboratory Findings CBC and BMP: 12/13/20 05:10 12/13/20 05:10 PT/INR, D-dimer D-Dimer 457.82 ng/mlDDU (0-234) H 12/12/20 16:59 Abnormal lab findings: Abnormal Labs 12/12/20 12/12/20 12/12/20 08:31 08:31 08:31 WBC RBC 6.07 H Hgb 17.8 H Hct 51.8 H Lymph % (Auto) 11.1 L [place] % (Auto) Lymph # (Auto) 0.8 L Seg Neutrophils % 81.5 H D-Dimer 570.82 H Glucose 105 H Ferritin Lactate Dehydrogenase C-Reactive Protein Coronavirus (PCR) 12/12/20 12/12/20 12/12/20 16:59 16:59 16:59 WBC RBC Hgb Hct Lymph % (Auto) [place] % (Auto) Lymph # (Auto) Seg Neutrophils % D-Dimer 457.82 H Glucose 146 H Ferritin 2805.0 H Lactate Dehydrogenase 331 H C-Reactive Protein 4.70 H Coronavirus (PCR) 12/13/20 12/13/20 12/13/20 05:10 05:10 08:00 WBC 4.0 L RBC 5.51 H Hgb 16.1 H Hct 47.5 H Lymph % (Auto) 12.7 L [place] % (Auto) 7.4 H Lymph # (Auto) 0.5 L Seg Neutrophils % 79.7 H D-Dimer Glucose 181 H Ferritin Lactate Dehydrogenase C-Reactive Protein Coronavirus (PCR) Positive A - Diagnostic Findings Chest x-ray: image reviewed Assessment and Plan Prone steroids Daily net negative state Guarded prognosis.
--- NOTE | 2020-12-13 15:48 | Consultation ---
History of Present Illness - Reason for Consult Consult date: 12/13/20 - History of Present Illness 50-year-old man past medical history COVID-19 diagnosed 2 weeks prior to admission presented to hospital complaining of shortness of breath. He notes that symptoms began around the time of his diagnosis and ending progressively worse since onset. He also complains of associated chest discomfort, fatigue, dry cough. He was evaluated at [facility] 2 days prior to admission was discharged with outpatient therapy. EMS was called and found the patient to have pulse ox of 82% on room air. Afebrile since admission with a white count of 4.0. Covid positive. Normal renal function. Normal procalcitonin. Currently on ceftriaxone and azithromycin with methylprednisolone. On 2 L nasal cannula. Imaging personally viewed: Chest CTA: Patchy bilateral groundglass no pulmonary embolus. Review of systems: Deferred to reduce to the risk of transmission of COVID-19 Past History Past Medical History: other (See HPI) Past Surgical History: No surgical history, Other (Reviewed) Social history: single. denies: smoking, alcohol abuse, prescription drug abuse Family history: hypertension Medications and Allergies Allergies Allergy/AdvReac Type Severity Reaction Status Date / Time No Known Allergies Allergy Verified 12/13/20 05:44 Home Medications Medication Instructions Recorded Confirmed Last Taken Type Ibuprofen [Motrin] 600 mg PO Q8H PRN #20 tablet 12/12/20 Unknown Rx Active Meds: Active Medications Acetaminophen (Acetaminophen 325 Mg Tab) 650 mg PO Q4H PRN PRN Reason: Pain MILD(1-3)/Fever >100.5/STEWART Last Admin: 12/12/20 21:44 Dose: 650 mg Documented by: Albuterol (Albuterol 2.5 Mg/3 Ml Nebu) 2.5 mg IH Q4HRT PRN PRN Reason: Shortness Of Breath Ascorbic Acid (Ascorbic Acid 500 Mg Tab) 500 mg PO BID [facility] Last Admin: 12/13/20 08:21 Dose: 500 mg Documented by: Cholecalciferol (Cholecalciferol (Vit D3) 1000 Unit (25 Mcg) Tab) 1,000 unit PO QDAY [facility] Last Admin: 12/13/20 08:21 Dose: 1,000 unit Documented by: Heparin Sodium (Porcine) (Heparin 5,000 Unit/1 Ml Vial) 5,000 unit SUB-Q Q12H [facility] Last Admin: 12/13/20 08:22 Dose: 5,000 unit Documented by: Hydromorphone HCl (Hydromorphone 1 Mg/1 Ml Inj) 0.5 mg IV Q23H PRN PRN Reason: Pain , Severe (7-10) Ceftriaxone Sodium (Rocephin/Ns 2 Gm/100 Ml) 2 gm in 100 mls @ 200 mls/hr IV Q24H [facility]; Protocol Stop: 12/16/20 17:59 Last Admin: 12/12/20 19:20 Dose: 200 mls/hr Documented by: Azithromycin (Zithromax/Ns) 500 mg in 250 mls @ 250 mls/hr IV Q24H [facility]; Mariann col Stop: 12/16/20 17:59 Methylprednisolone Sodium Succinate (Methylprednisolone Sod Succinate 40 Mg/1 Ml Inj) 40 mg IV Q8H [facility] Last Admin: 12/13/20 02:09 Dose: 40 mg Documented by: Ondansetron HCl (Ondansetron 4 Mg/2 Ml Inj) 4 mg IV Q8H PRN PRN Reason: Nausea And Vomiting Oxycodone/Acetaminophen (Oxycodone /Acetaminophen 5-325mg Tab) 1 tab PO Q16H PRN PRN Reason: Pain, Moderate (4-6) Last Admin: 12/12/20 21:43 Dose: 1 tab Documented by: Sodium Chloride (Sodium Chloride 0.9% 10 Ml Flush Syringe) 10 ml IV BID [facility] Last Admin: 12/12/20 21:45 Dose: 10 ml Documented by: Sodium Chloride (Sodium Chloride 0.9% 10 Ml Flush Syringe) 10 ml IV PRN PRN PRN Reason: LINE FLUSH Zinc Sulfate (Zinc Sulfate 220 Mg Cap) 220 mg PO BID [facility] Last Admin: 12/13/20 08:21 Dose: 220 mg Documented by: Physical Examination - Physical Exam Narrative exam: Physical exam deferred to reduce risk of transmission of COVID-19. Please refer to primary team's note. - Constitutional Vitals: Vital Signs Temp Pulse Resp BP Pulse Ox 98.1 F 86 22 106/75 95 12/13/20 11:26 12/13/20 11:26 12/13/20 11:26 12/13/20 11:26 12/13/20 13:23 Temperature -Last 24 Hours Temperature 98.1 F Temperature 98.5 F Temperature 98.2 F Temperature 99.2 F Temperature 99.2 F Temperature 99.0 F Temperature 99.6 F Results - Labs CBC & Chem 7: 12/13/20 05:10 12/13/20 05:10 Labs: Abnormal lab results 12/12/20 12/12/20 12/12/20 Range/Units 16:59 16:59 16:59 WBC (4.5-11.0) K/mm3 RBC (3.65-5.03) M/mm3 Hgb (11.8-15.2) gm/dl Hct (35.5-45.6) % Lymph % (Auto) (13.4-35.0) % Lane % (Auto) (0.0-7.3) % Lymph # (Auto) (1.2-5.4) K/mm3 Seg Neutrophils % (40.0-70.0) % D-Dimer 457.82 H (0-234) ng/mlDDU Glucose 146 H (75-100) mg/dL Ferritin 2805.0 H (30.0-300.0) ng/mL Lactate Dehydrogenase 331 H (91-180) units/L C-Reactive Protein 4.70 H (0.00-1.30) mg/dL Coronavirus (PCR) (Negative) 12/13/20 12/13/20 12/13/20 Range/Units 05:10 05:10 08:00 WBC 4.0 L (4.5-11.0) K/mm3 RBC 5.51 H (3.65-5.03) M/mm3 Hgb 16.1 H (11.8-15.2) gm/dl Hct 47.5 H (35.5-45.6) % Lymph % (Auto) 12.7 L (13.4-35.0) % Lane % (Auto) 7.4 H (0.0-7.3) % Lymph # (Auto) 0.5 L (1.2-5.4) K/mm3 Seg Neutrophils % 79.7 H (40.0-70.0) % D-Dimer (0-234) ng/mlDDU Glucose 181 H (75-100) mg/dL Ferritin (30.0-300.0) ng/mL Lactate Dehydrogenase (91-180) units/L C-Reactive Protein (0.00-1.30) mg/dL Coronavirus (PCR) Positive A (Negative) Assessment and Plan Cultures: Blood culture no growth so far A/P: 42-year-old man now with: #Severe COVID-19 pneumonia: Patient presented with a week of symptoms, chest x- ray with diffuse bilateral infiltrates, admission O2 sats on room air. Inflammatory markers elevated #Acute hypoxemic respiratory failure: Likely secondary to COVID-19 infection. Currently on Recommendations: -Steroids per pulmonary for 10 days -At that effective window for Remdesivir -Obtain q48-72h inflammatory markers - ferritin, Ddimer, CRP, LDH -Stopped empiric antibiotics -Anticoagulation per hospital protocol -Proning as able Thank you for the consult, we will continue to follow. MD [facility] O: [phone] F: [phone]
[2020-12-13] MEDS ORDERED: AZITHROMYCIN/NS 500 MG/250 ML 500 MG/250 ML BAG IV SCH (17:00)
[2020-12-14] MEDS: methylPREDNISolone Sod Succinate 40 MG/1 ML INJ IV SCH ×2 (03:13→09:45)
--- NOTE | 2020-12-14 07:28 | Discharge Summary ---
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 Patient reports "it is hard for me to breathe". Patient states that he has experienced shortness of breath over the past 2 weeks with worsening symptoms over the past 2 days. Patient acknowledges chest discomfort associated with deep breathing, fatigue, malaise, decreased exercise tolerance, dry cough, diminished sense of smell, diminished sense of taste. Patient was seen and evaluated at [facility] 2 days ago and discharged home with outpatient therapy. Patient knowledges compliance with therapy with persistent and worsening symptoms. EMS was notified and upon arrival the patient was found to be in distress with a pulse oximetry of 82% on room air. The patient was placed on nonrebreather mask and transported to [facility] for further care and evaluation of the aforementioned symptoms. The patient was seen and evaluated in the emergency department. All lab and imaging studies reviewed. Chest x-ray and CT chest revealed bilateral pneumonia. Patient found to have a pulse oximetry of 82% on room air with exertion which is consistent with acute hypoxemic respiratory failure. Patient admitted to medical floor and initiated on pneumonia protocol as well as coronavirus protocol. Patient denies fever, chills, palpitation, skin rash, recent ill contacts, trauma, unilateral leg swelling, calf pain, prolonged travel/immobility, individual/family history of DVT/PE/bleeding/blood clotting disorders. No prior admission for review. No medication listed at time of admission for reconciliation. 12/13: CTA of the chest shows bilateral patchy opacities with no pulmonary embolism. D-dimer still elevated. His oxygen has come down to 2 L and satting 94% at rest in the room. Pulmonary and ID consulted we will continue steroid therapy at current dose. Anticipate discharge soon. Is probably out of the window for remdesivir at this time. Monitor inflammatory markers (1) Acute respiratory failure with hypoxia Current Visit: Yes Status: Acute Plan to address problem: Chest x-ray, CT chest, supplemental oxygen, pulse oximetry, nebulizer therapy, proposition while in bed, early ambulation, pulmonary toilet. (2) Coronavirus infection Current Visit: Yes Status: Acute Plan to address problem: Coronavirus protocol: IV antibiotic therapy, IV steroid therapy, supplemental oxygen, pulse oximetry, vitamin C therapy, vitamin D therapy, zinc therapy, prophylactic anticoagulation (3) COVID-19 vaccination not done Current Visit: Yes Status: Acute Plan to address problem: Patient counseled. (4) DVT prophylaxis Current Visit: Yes Status: Acute Plan to address problem: SCD to bilateral lower extremities while in bed, prophylactic anticoagulation (5) Advance care planning Current Visit: Yes Status: Acute Plan to address problem: Disease education conducted, care plan discussed, diagnoses discussed, prognosis discussed, patient is full code, patient knowledges understanding and agreement with care plan. Disposition: HOME / SELF CARE / HOMELESS Exam - Constitutional Vitals: Temp Pulse Resp BP Pulse Ox 98.1 F 72 18 117/91 88 12/14/20 04:12 12/14/20 04:12 12/14/20 04:12 12/14/20 04:12 12/14/20 04:12 Plan Activity: advance as tolerated, fall precautions Diet: low fat Special Instructions: record daily weights, record daily BP diary, home oxygen v ia (nasal cannula @ 2 liters per minute) Plan of Treatment: Continue isolation precaution Take Eliquis for 15 days and have Primary doctor review if continued need Follow CDC guidelines for vaccination. Follow up with: KHOA VALADEZ MD [Staff Physician] - 3-5 Days PRIMARY CAREMD [Primary Care Provider] - 3-5 Days Prescriptions: dexAMETHasone [Dexamethasone] 6 mg PO DAILY #10 tablet Apixaban [Eliquis] 5 mg PO BID #30 tablet Ascorbic Acid [Vitamin C] 500 mg PO BID #60 tablet Cholecalciferol Vit D3 [Vitamin D3 1,000 UNIT TAB] 1,000 unit PO QDAY #30 tablet Zinc Sulfate 220 mg PO BID #30 capsule
[2020-12-14] MEDS: oxyCODONE /ACETAMINOPHEN 5-325MG TAB PO PRN (08:34)
[2020-12-14] MEDS: HEPARIN 5,000 UNIT/1 ML VIAL SUB-Q SCH ×2 (09:43→21:56)
[2020-12-14] MEDS: ASCORBIC ACID 500 MG TAB PO SCH ×2 (09:44→21:54)
[2020-12-14] MEDS: ZINC SULFATE 220 MG CAP PO SCH ×2 (09:44→21:54)
[2020-12-14] MEDS: CHOLECALCIFEROL (VIT D3) 1000 UNIT (25 mcg) TAB PO SCH (09:44)
[2020-12-14] MEDS ORDERED: HYDROcodone/HOMATROPINE 5-1.5MG /5 ML ORAL LIQD UNIT DOSE PO PRN (09:55)
--- NOTE | 2020-12-14 11:01 | Progress Note ---
Assessment and Plan Prone steroids Daily net negative state Guarded prognosis. Subjective Date of service: 12/14/20 Interval history: Weaned to 2 liters. Good sats. Remainder is negative. Objective Vital Signs - 12hr 12/14/20 12/14/20 03:00 04:12 Temperature 98.1 F Pulse Rate 72 Respiratory 18 Rate Blood Pressure 117/91 O2 Sat by Pulse 95 88 Oximetry Constitutional: no acute distress, alert Eyes: non-icteric Neck: supple Effort: normal Ascultation: Bilateral: clear CBC and BMP: 12/13/20 05:10 12/13/20 05:10 ABG, PT/INR, D-dimer: PT/INR, D-dimer D-Dimer 457.82 ng/mlDDU (0-234) H 12/12/20 16:59 Abnormal lab findings: Abnormal Labs 12/12/20 12/12/20 12/12/20 08:31 08:31 08:31 WBC RBC 6.07 H Hgb 17.8 H Hct 51.8 H Lymph % (Auto) 11.1 L [place] % (Auto) Lymph # (Auto) 0.8 L Seg Neutrophils % 81.5 H D-Dimer 570.82 H Glucose 105 H Ferritin Lactate Dehydrogenase C-Reactive Protein Coronavirus (PCR) 12/12/20 12/12/20 12/12/20 16:59 16:59 16:59 WBC RBC Hgb Hct Lymph % (Auto) [place] % (Auto) Lymph # (Auto) Seg Neutrophils % D-Dimer 457.82 H Glucose 146 H Ferritin 2805.0 H Lactate Dehydrogenase 331 H C-Reactive Protein 4.70 H Coronavirus (PCR) 12/13/20 12/13/20 12/13/20 05:10 05:10 08:00 WBC 4.0 L RBC 5.51 H Hgb 16.1 H Hct 47.5 H Lymph % (Auto) 12.7 L [place] % (Auto) 7.4 H Lymph # (Auto) 0.5 L Seg Neutrophils % 79.7 H D-Dimer Glucose 181 H Ferritin Lactate Dehydrogenase C-Reactive Protein Coronavirus (PCR) Positive A
[2020-12-14] MEDS: DEXAMETHASONE 4 MG TAB PO SCH (11:11)
[2020-12-14] MEDS: DOCUSATE SODIUM 100 MG CAP PO SCH ×2 (11:11→21:54)
--- NOTE | 2020-12-14 11:11 | Progress Note ---
Assessment and Plan Cultures: Blood culture no growth so far A/P: 42-year-old man now with: #Severe COVID-19 pneumonia: Patient presented with 2 weeks, chest x-ray with diffuse bilateral infiltrates. Inflammatory markers elevated #Acute hypoxemic respiratory failure: Likely secondary to COVID-19 infection. Currently on Recommendations: -Steroids per pulmonary for 10 days -After effective window for Remdesivir -Obtain q48-72h inflammatory markers - ferritin, Ddimer, CRP, LDH -Stopped empiric antibiotics -Anticoagulation per hospital protocol -Proning as able Thank you for the consult, we will continue to follow. Mario Alberto Overton MD [facility] O: [phone] F: [phone] Subjective Date of service: 12/14/20 Interval history: Afebrile, white count 4. On 2L NC Objective - Exam Narrative Exam: Physical exam deferred to reduce risk of transmission of COVID-19. Please refer to primary team's note. - Constitutional Vitals: Vital Signs Temp Pulse Resp BP Pulse Ox 98.1 F 72 18 117/91 88 12/14/20 04:12 12/14/20 04:12 12/14/20 04:12 12/14/20 04:12 12/14/20 04:12 Temperature -Last 24 Hours Temperature 98.1 F Temperature 98.5 F Temperature 98.3 F Temperature 98.1 F - Labs CBC & Chem 7: 12/13/20 05:10 12/13/20 05:10 Labs: Abnormal lab results 12/13/20 Range/Units 08:00 Coronavirus (PCR) Positive A (Negative)
--- NOTE | 2020-12-14 13:24 | Progress Note ---
Assessment and Plan Assessment and plan: 50 YO Male with Coronavirus Infection diagnosed 2 weeks ago presents to ED for evaluation. Patient reports "it is hard for me to breathe". Patient states that he has experienced shortness of breath over the past 2 weeks with worsening symptoms over the past 2 days. Patient acknowledges chest discomfort associated with deep breathing, fatigue, malaise, decreased exercise tolerance, dry cough, diminished sense of smell, diminished sense of taste. Patient was seen and evaluated at [facility] 2 days ago and discharged home with outpatient therapy. Patient knowledges compliance with therapy with persistent and worsening symptoms. EMS was notified and upon arrival the patient was found to be in di stress with a pulse oximetry of 82% on room air. The patient was placed on nonrebreather mask and transported to [facility] for further care and evaluation of the aforementioned symptoms. The patient was seen and evaluated in the emergency department. All lab and imaging studies reviewed. Chest x-ray and CT chest revealed bilateral pneumonia. Patient found to have a pulse oximetry of 82% on room air with exertion which is consistent with acute hypoxemic respiratory failure. Patient admitted to medical floor and initiated on pneumonia protocol as well as coronavirus protocol. Patient denies fever, chills, palpitation, skin rash, recent ill contacts, trauma, unilateral leg swelling, calf pain, prolonged travel/immobility, individual/family history of DVT/PE/bleeding/blood clotting disorders. No prior admission for review. No medication listed at time of admission for reconciliation. 12/13: CTA of the chest shows bilateral patchy opacities with no pulmonary embolism. D-dimer still elevated. His oxygen has come down to 2 L and satting 94% at rest in the room. Pulmonary and ID consulted we will continue steroid therapy at current dose. Anticipate discharge soon. Is probably out of the window for remdesivir at this time. Monitor inflammatory markers 12/14: Patient switched to p.o. steroids. Discharge plan for this morning was held due to continuous cough with near syncope. Will monitor for the next 24 hours patient will definitely need oxygen at home as he desatted to 86% on change in position without oxygen. We will also give Hydromet and incentive spirometer to recruit the lungs. (1) Acute respiratory failure with hypoxia Current Visit: Yes Status: Acute Plan to address problem: Chest x-ray, CT chest, supplemental oxygen, pulse oximetry, nebulizer therapy, proposition while in bed, early ambulation, pulmonary toilet. (2) Coronavirus infection Current Visit: Yes Status: Acute Plan to address problem: Coronavirus protocol: IV antibiotic therapy, IV steroid therapy, supplemental oxygen, pulse oximetry, vitamin C therapy, vitamin D therapy, zinc therapy, prophylactic anticoagulation (3) COVID-19 vaccination not done Current Visit: Yes Status: Acute Plan to address problem: Patient counseled. (4) near syncope likely secondary to deconditioning (5) DVT prophylaxis Current Visit: Yes Status: Acute Plan to address problem: SCD to bilateral lower extremities while in bed, prophylactic anticoagulation (6) Advance care planning Current Visit: Yes Status: Acute Plan to address problem: Disease education conducted, care plan discussed, diagnoses discussed, prognosis discussed, patient is full code, patient knowledges understanding and agreement with care plan. History Interval history: Patient seen and examined this morning was planned for discharge but sitting up on room air sat dropped to 86 with profuse coughing and sensation of near syncope. Hospitalist Physical - Physical exam Narrative exam: VITAL SIGNS: Reviewed. GENERAL: The patient appears normally developed, intermittent continuous coughing vital signs as documented. HEAD: No signs of head trauma. EYES: Pupils are equal. Extraocular motions intact. EARS: Hearing grossly intact. MOUTH: Oropharynx is normal. NECK: No adenopathy, no JVD. CHEST: Chest with diminished breath sounds bilaterally with mild bibasilar crackles. No wheezes, rales, or rhonchi. CARDIAC: Regular rate and rhythm. S1 and S2, without murmurs, gallops, or rubs. VASCULAR: No Edema. Peripheral pulses normal and equal in all extremities. ABDOMEN: Soft, non tender and non distended. No rebound or guarding, and no masses palpated. Bowel Sounds normal. MUSCULOSKELETAL: Good range of motion of all major joints. Extremities without clubbing, cyanosis or edema. NEUROLOGIC EXAM: Alert and oriented x 3 No focal sensory or strength deficits. Speech normal. Follows commands. PSYCHIATRIC: Mood normal. SKIN: detail exam as documented in skin assessment - Constitutional Vitals: Temp Pulse Resp BP Pulse Ox 97.6 F 76 18 139/87 94 12/14/20 11:41 12/14/20 11:41 12/14/20 11:41 12/14/20 11:41 12/14/20 11:41 General appearance: Present: mild distress HEART Score - HEART Score Troponin: Troponin T < 0.010 ng/mL (0.00-0.029) 12/12/20 08:31 Results - Labs CBC & Chem 7: 12/13/20 05:10 12/13/20 05:10 Labs: Laboratory Last Values WBC 4.0 K/mm3 (4.5-11.0) L 12/13/20 05:10 RBC 5.51 M/mm3 (3.65-5.03) H 12/13/20 05:10 Hgb 16.1 gm/dl (11.8-15.2) H 12/13/20 05:10 Hct 47.5 % (35.5-45.6) H 12/13/20 05:10 MCV 86 fl (84-94) 12/13/20 05:10 MCH 29 pg (28-32) 12/13/20 05:10 MCHC 34 % (32-34) 12/13/20 05:10 RDW 13.3 % (13.2-15.2) 12/13/20 05:10 Plt Count 147 K/mm3 (140-440) 12/13/20 05:10 Lymph % (Auto) 12.7 % (13.4-35.0) L 12/13/20 05:10 [place] % (Auto) 7.4 % (0.0-7.3) H 12/13/20 05:10 Eos % (Auto) 0.0 % (0.0-4.3) 12/13/20 05:10 Baso % (Auto) 0.2 % (0.0-1.8) 12/13/20 05:10 Lymph # (Auto) 0.5 K/mm3 (1.2-5.4) L 12/13/20 05:10 [place] # (Auto) 0.3 K/mm3 (0.0-0.8) 12/13/20 05:10 Eos # (Auto) 0.0 K/mm3 (0.0-0.4) 12/13/20 05:10 Baso # (Auto) 0.0 K/mm3 (0.0-0.1) 12/13/20 05:10 Seg Neutrophils % 79.7 % (40.0-70.0) H 12/13/20 05:10 Seg Neutrophils # 3.2 K/mm3 (1.8-7.7) 12/13/20 05:10 D-Dimer 457.82 ng/mlDDU (0-234) H 12/12/20 16:59 Sodium 139 mmol/L (137-145) 12/13/20 05:10 Potassium 4.4 mmol/L (3.6-5.0) 12/13/20 05:10 Chloride 103.3 mmol/L (98-107) 12/13/20 05:10 Carbon Dioxide 23 mmol/L (22-30) 12/13/20 05:10 Anion Gap 17 mmol/L 12/13/20 05:10 BUN 18 mg/dL (9-20) 12/13/20 05:10 Creatinine 1.0 mg/dL (0.8-1.3) 12/13/20 05:10 Estimated GFR > 60 ml/min 12/13/20 05:10 BUN/Creatinine Ratio 18 % 12/13/20 05:10 Glucose 181 mg/dL (75-100) H 12/13/20 05:10 Lactic Acid 1.00 mmol/L (0.7-2.0) 12/12/20 16:59 Calcium 8.7 mg/dL (8.4-10.2) 12/13/20 05:10 Ferritin 2805.0 ng/mL (30.0-300.0) H 12/12/20 16:59 Lactate Dehydrogenase 331 units/L (91-180) H 12/12/20 16:59 Troponin T < 0.010 ng/mL (0.00-0.029) 12/12/20 08:31 C-Reactive Protein 4.70 mg/dL (0.00-1.30) H 12/12/20 16:59 Procalcitonin 0.06 ng/mL (<0.15) 12/12/20 16:59 Coronavirus (PCR) Positive (Negative) A 12/13/20 08:00 Microbiology: Microbiology 12/12/20 16:59 Peripheral/Venous Blood Culture - Preliminary NO GROWTH AFTER 24 HOURS 12/12/20 17:06 Peripheral/Venous Blood Culture - Preliminary NO GROWTH AFTER 24 HOURS Gutierrez/IV: Voiding Method Urinal Active Medications - Current Medications Current Medications: Generic Name Dose Route Start Last Admin Trade Name Freq PRN Reason Stop Dose Admin Acetaminophen 650 mg 10/12/21 16:50 12/12/20 21:44 Acetaminophen 325 Mg Tab PO 650 mg Q4H PRN Administration Pain MILD(1-3)/Fever >100.5/STEWART Albuterol 2.5 mg 12/12/20 16:50 Albuterol 2.5 Mg/3 Ml Nebu IH Q4HRT PRN Shortness Of Breath Ascorbic Acid 500 mg 12/12/20 22:00 12/14/20 09:44 Ascorbic Acid 500 Mg Tab PO 500 mg BID PRANAV Administration Cholecalciferol 1,000 unit 12/13/20 10:00 12/14/20 09:44 Cholecalciferol (Vit D3) 1000 Unit (25 Mcg) Tab PO 1,000 unit QDAY PRANAV Administration Dexamethasone 8 mg 12/14/20 10:00 12/14/20 11:11 Dexamethasone 4 Mg Tab PO 12/21/20 10:59 8 mg DAILY PRANAV Administration Docusate Sodium 100 mg 12/14/20 10:00 12/14/20 11:11 Docusate Sodium 100 Mg Cap PO 100 mg BID PRANAV Administration Heparin Sodium (Porcine) 5,000 unit 12/12/20 22:00 12/14/20 09:43 Heparin 5,000 Unit/1 Ml Vial SUB-Q 5,000 unit Q12H PRANAV Administration Hydrocodone Bit/Homatropine Methylb 10 ml 12/14/20 09:55 Hydrocodone/Homatropine 5-1.5mg /5 Ml Oral Liqd Unit Dose PO Q6H PRN Cough Hydromorphone HCl 0.5 mg 12/12/20 16:50 Hydromorphone 1 Mg/1 Ml Inj IV Q23H PRN Pain , Severe (7-10) Ondansetron HCl 4 mg 12/12/20 16:50 Ondansetron 4 Mg/2 Ml Inj IV Q8H PRN Nausea And Vomiting Oxycodone/Acetaminophen 1 tab 12/12/20 16:50 12/14/20 08:34 Oxycodone /Acetaminophen 5-325mg Tab PO 1 tab Q16H PRN Administration Pain, Moderate (4-6) Sodium Chloride 10 ml 12/12/20 22:00 12/14/20 09:46 Sodium Chloride 0.9% 10 Ml Flush Syringe IV Not Given BID PRANAV Sodium Chloride 10 ml 12/12/20 16:50 Sodium Chloride 0.9% 10 Ml Flush Syringe IV PRN PRN LINE FLUSH Zinc Sulfate 220 mg 12/12/20 22:00 12/14/20 09:44 Zinc Sulfate 220 Mg Cap PO 220 mg BID PRANAV Administration
--- NOTE | 2020-12-14 16:40 | Vascular Lab Report ---
DUPLEX DOPPLER LOWER EXTREMITY VEINS, BILATERAL INDICATION / CLINICAL INFORMATION: Shortness of breath. TECHNIQUE: Duplex doppler imaging was performed through the veins of both lower extremities using venous kelly shelia and other maneuvers. COMPARISON: None available. FINDINGS: RIGHT COMMON FEMORAL VEIN: Negative. RIGHT FEMORAL VEIN: Negative. RIGHT POPLITEAL VEIN: Negative. RIGHT CALF VEINS: Negative. LEFT COMMON FEMORAL VEIN: Negative. LEFT FEMORAL VEIN: Negative. LEFT POPLITEAL VEIN: Negative. LEFT CALF VEINS: Negative. ADDITIONAL FINDINGS: None. IMPRESSION: 1. No sonographic evidence for DVT in either lower extremity. Signer Name: Te Sebastian MD Signed: 12/14/2020 4:35 PM Workstation Name: [id number]
--- NOTE | 2020-12-15 08:42 | Progress Note ---
Assessment and Plan 12/15/20: No objection to discharge on home oxygen therapy as patient qualifies. 10 days of steroid therapy. Should continue to prone while at home. Will sign off, call if questions. Subjective Date of service: 12/15/20 Interval history: Patient not discharged yesterday secondary to near syncope. REmains stable on 2 liters but per IMS note desatted to 86% off oxygen with exertion. Objective Vital Signs - 12hr 12/14/20 12/14/20 12/14/20 21:59 22:00 22:49 Temperature 97.9 F Pulse Rate 67 Respiratory 16 Rate Blood Pressure 134/82 O2 Sat by Pulse 97 95 96 Oximetry 12/15/20 04:47 Temperature 98.0 F Pulse Rate 66 Respiratory 16 Rate Blood Pressure 117/87 O2 Sat by Pulse 91 Oximetry Constitutional: no acute distress, alert Eyes: non-icteric Neck: supple Effort: normal Ascultation: Bilateral: clear CBC and BMP: 12/13/20 05:10 12/13/20 05:10 ABG, PT/INR, D-dimer: PT/INR, D-dimer D-Dimer 457.82 ng/mlDDU (0-234) H 12/12/20 16:59 Abnormal lab findings: Abnormal Labs 12/12/20 12/12/20 12/12/20 08:31 08:31 08:31 WBC RBC 6.07 H Hgb 17.8 H Hct 51.8 H Lymph % (Auto) 11.1 L [place] % (Auto) Lymph # (Auto) 0.8 L Seg Neutrophils % 81.5 H D-Dimer 570.82 H Glucose 105 H Ferritin Lactate Dehydrogenase C-Reactive Protein Coronavirus (PCR) 12/12/20 12/12/20 12/12/20 16:59 16:59 16:59 WBC RBC Hgb Hct Lymph % (Auto) [place] % (Auto) Lymph # (Auto) Seg Neutrophils % D-Dimer 457.82 H Glucose 146 H Ferritin 2805.0 H Lactate Dehydrogenase 331 H C-Reactive Protein 4.70 H Coronavirus (PCR) 12/13/20 12/13/20 12/13/20 05:10 05:10 08:00 WBC 4.0 L RBC 5.51 H Hgb 16.1 H Hct 47.5 H Lymph % (Auto) 12.7 L [place] % (Auto) 7.4 H Lymph # (Auto) 0.5 L Seg Neutrophils % 79.7 H D-Dimer Glucose 181 H Ferritin Lactate Dehydrogenase C-Reactive Protein Coronavirus (PCR) Positive A
--- NOTE | 2020-12-15 08:46 | Progress Note ---
Assessment and Plan Assessment and plan: 50 YO Male with Coronavirus Infection diagnosed 2 weeks ago presents to ED for evaluation. Patient reports "it is hard for me to breathe". Patient states that he has experienced shortness of breath over the past 2 weeks with worsening symptoms over the past 2 days. Patient acknowledges chest discomfort associated with deep breathing, fatigue, malaise, decreased exercise tolerance, dry cough, diminished sense of smell, diminished sense of taste. Patient was seen and evaluated at [facility] 2 days ago and discharged home with outpatient therapy. Patient knowledges compliance with therapy with persistent and worsening symptoms. EMS was notified and upon arrival the patient was found to be in di stress with a pulse oximetry of 82% on room air. The patient was placed on nonrebreather mask and transported to [facility] for further care and evaluation of the aforementioned symptoms. The patient was seen and evaluated in the emergency department. All lab and imaging studies reviewed. Chest x-ray and CT chest revealed bilateral pneumonia. Patient found to have a pulse oximetry of 82% on room air with exertion which is consistent with acute hypoxemic respiratory failure. Patient admitted to medical floor and initiated on pneumonia protocol as well as coronavirus protocol. Patient denies fever, chills, palpitation, skin rash, recent ill contacts, trauma, unilateral leg swelling, calf pain, prolonged travel/immobility, individual/family history of DVT/PE/bleeding/blood clotting disorders. No prior admission for review. No medication listed at time of admission for reconciliation. 12/13: CTA of the chest shows bilateral patchy opacities with no pulmonary embolism. D-dimer still elevated. His oxygen has come down to 2 L and satting 94% at rest in the room. Pulmonary and ID consulted we will continue steroid therapy at current dose. Anticipate discharge soon. Is probably out of the window for remdesivir at this time. Monitor inflammatory markers 12/14: Patient switched to p.o. steroids. Discharge plan for this morning was held due to continuous cough with near syncope. Will monitor for the next 24 hours patient will definitely need oxygen at home as he desatted to 86% on change in position without oxygen. We will also give Hydromet and incentive spirometer to recruit the lungs. 12/15: On examination today appears to have more anxiety than normal. Continue to encourage proning. Considering possible history of tobacco use although he denies it we will start him on Flomax and montelukast. We will check a D-dimer. Xanax has been started for anxiety as needed. We will repeat a walk test in a.m. I did review x-ray which I ordered this morning which shows that he has improvement in the patchy opacities. Continue steroids at this time to complete total of 10 days (1) Acute respiratory failure with hypoxia Current Visit: Yes Status: Acute Plan to address problem: Chest x-ray, CT chest, supplemental oxygen, pulse oximetry, nebulizer therapy, proposition while in bed, early ambulation, pulmonary toilet. (2) Coronavirus infection Current Visit: Yes Status: Acute Plan to address problem: Coronavirus protocol: IV antibiotic therapy, IV steroid therapy, supplemental oxygen, pulse oximetry, vitamin C therapy, vitamin D therapy, zinc therapy, prophylactic anticoagulation (3) COVID-19 vaccination not done Current Visit: Yes Status: Acute Plan to address problem: Patient counseled. (4) near syncope likely secondary to deconditioning (5) DVT prophylaxis Current Visit: Yes Status: Acute Plan to address problem: SCD to bilateral lower extremities while in bed, prophylactic anticoagulation (6) Advance care planning Current Visit: Yes Status: Acute Plan to address problem: Disease education conducted, care plan discussed, diagnoses discussed, prognosis discussed, patient is full code, patient knowledges understanding and agreement with care plan. History Interval history: Patient seen and examined this morning again this morning was anxious difficult to voice words with intermittent cough and sensation of something stuck in his chest Hospitalist Physical - Physical exam Narrative exam: VITAL SIGNS: Reviewed. GENERAL: The patient appears normally developed, intermittent continuous coughing vital signs as documented. HEAD: No signs of head trauma. EYES: Pupils are equal. Extraocular motions intact. EARS: Hearing grossly intact. MOUTH: Oropharynx is normal. NECK: No adenopathy, no JVD. CHEST: Chest with diminished breath sounds bilaterally with mild bibasilar crackles. No wheezes, rales, or rhonchi. CARDIAC: Regular rate and rhythm. S1 and S2, without murmurs, gallops, or rubs. VASCULAR: No Edema. Peripheral pulses normal and equal in all extremities. ABDOMEN: Soft, non tender and non distended. No rebound or guarding, and no masses palpated. Bowel Sounds normal. MUSCULOSKELETAL: Good range of motion of all major joints. Extremities without clubbing, cyanosis or edema. NEUROLOGIC EXAM: Alert and oriented x 3 No focal sensory or strength deficits. Speech normal. Follows commands. PSYCHIATRIC: Mood normal. SKIN: detail exam as documented in skin assessment - Constitutional Vitals: Temp Pulse Resp BP Pulse Ox 98.0 F 66 16 117/87 91 12/15/20 04:47 12/15/20 04:47 12/15/20 04:47 12/15/20 04:47 12/15/20 04:47 General appearance: Present: mild distress HEART Score - HEART Score Troponin: Troponin T < 0.010 ng/mL (0.00-0.029) 12/12/20 08:31 Results - Labs CBC & Chem 7: 12/13/20 05:10 12/13/20 05:10 Labs: Laboratory Last Values WBC 4.0 K/mm3 (4.5-11.0) L 12/13/20 05:10 RBC 5.51 M/mm3 (3.65-5.03) H 12/13/20 05:10 Hgb 16.1 gm/dl (11.8-15.2) H 12/13/20 05:10 Hct 47.5 % (35.5-45.6) H 12/13/20 05:10 MCV 86 fl (84-94) 12/13/20 05:10 MCH 29 pg (28-32) 12/13/20 05:10 MCHC 34 % (32-34) 12/13/20 05:10 RDW 13.3 % (13.2-15.2) 12/13/20 05:10 Plt Count 147 K/mm3 (140-440) 12/13/20 05:10 Lymph % (Auto) 12.7 % (13.4-35.0) L 12/13/20 05:10 [place] % (Auto) 7.4 % (0.0-7.3) H 12/13/20 05:10 Eos % (Auto) 0.0 % (0.0-4.3) 12/13/20 05:10 Baso % (Auto) 0.2 % (0.0-1.8) 12/13/20 05:10 Lymph # (Auto) 0.5 K/mm3 (1.2-5.4) L 12/13/20 05:10 [place] # (Auto) 0.3 K/mm3 (0.0-0.8) 12/13/20 05:10 Eos # (Auto) 0.0 K/mm3 (0.0-0.4) 12/13/20 05:10 Baso # (Auto) 0.0 K/mm3 (0.0-0.1) 12/13/20 05:10 Seg Neutrophils % 79.7 % (40.0-70.0) H 12/13/20 05:10 Seg Neutrophils # 3.2 K/mm3 (1.8-7.7) 12/13/20 05:10 D-Dimer 457.82 ng/mlDDU (0-234) H 12/12/20 16:59 Sodium 139 mmol/L (137-145) 12/13/20 05:10 Potassium 4.4 mmol/L (3.6-5.0) 12/13/20 05:10 Chloride 103.3 mmol/L (98-107) 12/13/20 05:10 Carbon Dioxide 23 mmol/L (22-30) 12/13/20 05:10 Anion Gap 17 mmol/L 12/13/20 05:10 BUN 18 mg/dL (9-20) 12/13/20 05:10 Creatinine 1.0 mg/dL (0.8-1.3) 12/13/20 05:10 Estimated GFR > 60 ml/min 12/13/20 05:10 BUN/Creatinine Ratio 18 % 12/13/20 05:10 Glucose 181 mg/dL (75-100) H 12/13/20 05:10 Lactic Acid 1.00 mmol/L (0.7-2.0) 12/12/20 16:59 Calcium 8.7 mg/dL (8.4-10.2) 12/13/20 05:10 Ferritin 2805.0 ng/mL (30.0-300.0) H 12/12/20 16:59 Lactate Dehydrogenase 331 units/L (91-180) H 12/12/20 16:59 Troponin T < 0.010 ng/mL (0.00-0.029) 12/12/20 08:31 C-Reactive Protein 4.70 mg/dL (0.00-1.30) H 12/12/20 16:59 Procalcitonin 0.06 ng/mL (<0.15) 12/12/20 16:59 Coronavirus (PCR) Positive (Negative) A 12/13/20 08:00 Microbiology: Microbiology 12/12/20 16:59 Peripheral/Venous Blood Culture - Preliminary NO GROWTH AFTER 48 HOURS 12/12/20 17:06 Peripheral/Venous Blood Culture - Preliminary NO GROWTH AFTER 48 HOURS Gutierrez/IV: Voiding Method Urinal Active Medications - Current Medications Current Medications: Generic Name Dose Route Start Last Admin Trade Name Freq PRN Reason Stop Dose Admin Acetaminophen 650 mg 12/12/20 16:50 12/12/20 21:44 Acetaminophen 325 Mg Tab PO 650 mg Q4H PRN Administration Pain MILD(1-3)/Fever >100.5/STEWART Albuterol 2.5 mg 12/12/20 16:50 Albuterol 2.5 Mg/3 Ml Nebu IH Q4HRT PRN Shortness Of Breath Ascorbic Acid 500 mg 12/12/20 22:00 12/14/20 21:54 Ascorbic Acid 500 Mg Tab PO 500 mg BID PRANAV Administration Cholecalciferol 1,000 unit 12/13/20 10:00 12/14/20 09:44 Cholecalciferol (Vit D3) 1000 Unit (25 Mcg) Tab PO 1,000 unit QDAY PRANAV Administration Dexamethasone 8 mg 12/14/20 10:00 12/14/20 11:11 Dexamethasone 4 Mg Tab PO 12/21/20 10:59 8 mg DAILY PRANAV Administration Docusate Sodium 100 mg 12/14/20 10:00 12/14/20 21:54 Docusate Sodium 100 Mg Cap PO 100 mg BID PRANAV Administration Heparin Sodium (Porcine) 5,000 unit 12/12/20 22:00 12/14/20 21:56 Heparin 5,000 Unit/1 Ml Vial SUB-Q 5,000 unit Q12H PRANAV Administration Hydrocodone Bit/Homatropine Methylb 10 ml 12/14/20 09:55 Hydrocodone/Homatropine 5-1.5mg /5 Ml Oral Liqd Unit Dose PO Q6H PRN Cough Hydromorphone HCl 0.5 mg 12/12/20 16:50 Hydromorphone 1 Mg/1 Ml Inj IV Q23H PRN Pain , Severe (7-10) Ondansetron HCl 4 mg 12/12/20 16:50 Ondansetron 4 Mg/2 Ml Inj IV Q8H PRN Nausea And Vomiting Oxycodone/Acetaminophen 1 tab 12/12/20 16:50 12/14/20 08:34 Oxycodone /Acetaminophen 5-325mg Tab PO 1 tab Q16H PRN Administration Pain, Moderate (4-6) Sodium Chloride 10 ml 12/12/20 22:00 12/14/20 21:55 Sodium Chloride 0.9% 10 Ml Flush Syringe IV 10 ml BID PRANAV Administration Sodium Chloride 10 ml 12/12/20 16:50 Sodium Chloride 0.9% 10 Ml Flush Syringe IV PRN PRN LINE FLUSH Zinc Sulfate 220 mg 12/12/20 22:00 12/14/20 21:54 Zinc Sulfate 220 Mg Cap PO 220 mg BID PRANAV Administration
[2020-12-15] MEDS: HEPARIN 5,000 UNIT/1 ML VIAL SUB-Q SCH ×2 (09:27→22:17)
[2020-12-15] MEDS: DEXAMETHASONE 4 MG TAB PO SCH (09:27)
[2020-12-15] MEDS: ASCORBIC ACID 500 MG TAB PO SCH ×2 (09:28→22:07)
[2020-12-15] MEDS: DOCUSATE SODIUM 100 MG CAP PO SCH ×2 (09:28→22:06)
[2020-12-15] MEDS: ZINC SULFATE 220 MG CAP PO SCH ×2 (09:28→22:07)
[2020-12-15] MEDS: CHOLECALCIFEROL (VIT D3) 1000 UNIT (25 mcg) TAB PO SCH (09:28)
--- NOTE | 2020-12-15 09:34 | XRay Report ---
CHEST 1 VIEW 12/15/2020 8:25 AM INDICATION / CLINICAL INFORMATION: Shortness of breath. COMPARISON: 12/12/20. FINDINGS: SUPPORT DEVICES: None. HEART / MEDIASTINUM: The heart size is normal. LUNGS / PLEURA: Patchy parenchymal opacities in both mid to lower lung zones have shown significant i mprovement. Mild bibasilar parenchymal opacities persist. No new abnormality. No pleural effusion. No pneumothorax. ADDITIONAL FINDINGS: No significant additional findings. IMPRESSION: Improving patchy parenchymal opacities in both mid to lower lung zones. Signer Name: Gaurang Jordan MD Signed: 12/15/2020 9:30 AM Workstation Name: [id number]
[2020-12-15] MEDS ORDERED: ALPRAZolam 0.5 MG TAB PO PRN (10:00)
[2020-12-15] MEDS: FLUTICASONE PROPIONATE NASAL SPRAY 16 GM NS SCH (10:30)
--- NOTE | 2020-12-15 14:25 | Progress Note ---
Assessment and Plan Cultures: Blood culture no growth so far A/P: 42-year-old man now with: #Severe COVID-19 pneumonia: Patient presented with 2 weeks, chest x-ray with diffuse bilateral infiltrates. Inflammatory markers elevated #Acute hypoxemic respiratory failure: Likely secondary to COVID-19 infection. Currently on 2LNC Recommendations: -Steroids per pulmonary for 10 days -After effective window for Remdesivir -Obtain q48-72h inflammatory markers - ferritin, Ddimer, CRP, LDH -Stopped empiric antibiotics -Anticoagulation per hospital protocol -Proning as able -Home O2 eval prior to discharge. Thank you for the consult, we will sign off. Please call questions. Mario Alberto Overton MD [facility] O: [phone] F: [phone] Subjective Date of service: 12/15/20 Interval history: Afebrile, white count 4.0. On 2 L nasal cannula. Imaging personally reviewed: Chest x-ray: Improving patchy parenchymal opacities. Objective - Exam Narrative Exam: Physical exam deferred to reduce risk of transmission of COVID-19. Please refer to primary team's note. - Constitutional Vitals: Vital Signs Temp Pulse Resp BP Pulse Ox 98.0 F 66 16 117/87 91 12/15/20 04:47 12/15/20 04:47 12/15/20 04:47 12/15/20 04:47 12/15/20 04:47 Temperature -Last 24 Hours Temperature 98.0 F Temperature 97.9 F - Labs CBC & Chem 7: 12/13/20 05:10 12/13/20 05:10
[2020-12-15] MEDS: MONTELUKAST 10 MG TAB PO SCH (22:07)
[2020-12-16 06:40] LABS: Hematocrit 46.2 % (35.5-45.6); Hemoglobin 15.4 gm/dl (11.8-15.2); Mean Corpuscular HGB Conc 33 % (32-34); Mean Corpuscular Volume 86 fl (84-94); Platelet Count 267 K/mm3 (140-440); Red Blood Count 5.36 M/mm3 (3.65-5.03); Red Cell Distribution Width 13.2 % (13.2-15.2)
[2020-12-16 07:12] LABS: BUN/Creatinine Ratio 22; Blood Urea Nitrogen 22 mg/dL (9-20); Calcium 8.6 mg/dL (8.4-10.2); Hemolysis Index 10
--- NOTE | 2020-12-16 08:55 | Discharge Summary ---
Providers - Providers Date of Admission: 12/12/20 16:50 Attending physician: THO PERALTA MD 12/13/20 10:01 Consult to Physician [CONS] Routine Comment: Consulting Provider: VANESSA BULLARD Physician Instructions: Reason For Exam: covid 19 Consult to Physician [CONS] Routine Comment: Consulting Provider: JUAN RIVERS Physician Instructions: Reason For Exam: hypoxic respiratory failur Primary care physician: [facility] Hospitalization Condition: Stable Disposition: 01 HOME / SELF CARE / HOMELESS Exam - Constitutional Vitals: Temp Pulse Resp BP Pulse Ox 98.0 F 78 16 114/79 98 12/16/20 03:50 12/16/20 03:50 12/16/20 03:50 12/16/20 03:50 12/16/20 03:50 Plan Plan of Treatment: Continue isolation precaution Take Eliquis for 15 days and have Primary doctor review if continued need Follow CDC guidelines for vaccination. Follow up with: KHOA VALADEZ MD [Staff Physician] - 3-5 Days PRIMARY CAREMD [Primary Care Provider] - 3-5 Days Prescriptions: dexAMETHasone [Dexamethasone] 6 mg PO DAILY #10 tablet Apixaban [Eliquis] 5 mg PO BID #30 tablet Ascorbic Acid [Vitamin C] 500 mg PO BID #60 tablet Cholecalciferol Vit D3 [Vitamin D3 1,000 UNIT TAB] 1,000 unit PO QDAY #30 tablet Zinc Sulfate 220 mg PO BID #30 capsule
[2020-12-16] MEDS: ZINC SULFATE 220 MG CAP PO SCH ×2 (09:43→21:29)
[2020-12-16] MEDS: ASCORBIC ACID 500 MG TAB PO SCH ×2 (09:43→21:29)
[2020-12-16] MEDS: CHOLECALCIFEROL (VIT D3) 1000 UNIT (25 mcg) TAB PO SCH (09:43)
[2020-12-16] MEDS: DEXAMETHASONE 4 MG TAB PO SCH (09:43)
[2020-12-16] MEDS: DOCUSATE SODIUM 100 MG CAP PO SCH ×2 (09:43→21:29)
[2020-12-16] MEDS: FLUTICASONE PROPIONATE NASAL SPRAY 16 GM NS SCH (09:43)
[2020-12-16] MEDS: HEPARIN 5,000 UNIT/1 ML VIAL SUB-Q SCH ×2 (09:44→21:29)
--- NOTE | 2020-12-16 11:24 | Progress Note ---
Assessment and Plan Assessment and plan: 50 YO Male with Coronavirus Infection diagnosed 2 weeks ago presents to ED for evaluation. Patient reports "it is hard for me to breathe". Patient states that he has experienced shortness of breath over the past 2 weeks with worsening symptoms over the past 2 days. Patient acknowledges chest discomfort associated with deep breathing, fatigue, malaise, decreased exercise tolerance, dry cough, diminished sense of smell, diminished sense of taste. Patient was seen and evaluated at [facility] 2 days ago and discharged home with outpatient therapy. Patient knowledges compliance with therapy with persistent and worsening symptoms. EMS was notified and upon arrival the patient was found to be in di stress with a pulse oximetry of 82% on room air. The patient was placed on nonrebreather mask and transported to [facility] for further care and evaluation of the aforementioned symptoms. The patient was seen and evaluated in the emergency department. All lab and imaging studies reviewed. Chest x-ray and CT chest revealed bilateral pneumonia. Patient found to have a pulse oximetry of 82% on room air with exertion which is consistent with acute hypoxemic respiratory failure. Patient admitted to medical floor and initiated on pneumonia protocol as well as coronavirus protocol. Patient denies fever, chills, palpitation, skin rash, recent ill contacts, trauma, unilateral leg swelling, calf pain, prolonged travel/immobility, individual/family history of DVT/PE/bleeding/blood clotting disorders. No prior admission for review. No medication listed at time of admission for reconciliation. 12/13: CTA of the chest shows bilateral patchy opacities with no pulmonary embolism. D-dimer still elevated. His oxygen has come down to 2 L and satting 94% at rest in the room. Pulmonary and ID consulted we will continue steroid therapy at current dose. Anticipate discharge soon. Is probably out of the window for remdesivir at this time. Monitor inflammatory markers 12/14: Patient switched to p.o. steroids. Discharge plan for this morning was held due to continuous cough with near syncope. Will monitor for the next 24 hours patient will definitely need oxygen at home as he desatted to 86% on change in position without oxygen. We will also give Hydromet and incentive spirometer to recruit the lungs. 12/15: On examination today appears to have more anxiety than normal. Continue to encourage proning. Considering possible history of tobacco use although he denies it we will start him on Flomax and montelukast. We will check a D-dimer. Xanax has been started for anxiety as needed. We will repeat a walk test in a.m. I did review x-ray which I ordered this morning which shows that he has improvement in the patchy opacities. Continue steroids at this time to complete total of 10 days 12/16: Patient seen and examined resting comfortably although still with shortness of breath when he tries to ambulate. I have advised that he problems he verbalized understanding. He has not had any cardiac event and satting 98% on 2 L of oxygen but gets very dizzy on ambulation. While his blood pressure is stable we will give him some Lasix to see if this will help improve his exer tional dyspnea we will also discontinue telemonitoring in anticipation for discharge tomorrow to encourage him prone. He verbalized understanding of treatment plan (1) Acute respiratory failure with hypoxia Current Visit: Yes Status: Acute Plan to address problem: Chest x-ray, CT chest, supplemental oxygen, pulse oximetry, nebulizer therapy, proposition while in bed, early ambulation, pulmonary toilet. (2) Coronavirus infection Current Visit: Yes Status: Acute Plan to address problem: Coronavirus protocol: IV antibiotic therapy, IV steroid therapy, supplemental oxygen, pulse oximetry, vitamin C therapy, vitamin D therapy, zinc therapy, prophylactic anticoagulation (3) COVID-19 vaccination not done Current Visit: Yes Status: Acute Plan to address problem: Patient counseled. (4) near syncope likely secondary to deconditioning (5) DVT prophylaxis Current Visit: Yes Status: Acute Plan to address problem: SCD to bilateral lower extremities while in bed, prophylactic anticoagulation (6) Advance care planning Current Visit: Yes Status: Acute Plan to address problem: Disease education conducted, care plan discussed, diagnoses discussed, prognosis discussed, patient is full code, patient knowledges understanding and agreement with care plan. History Interval history: Patient seen and examined this morning again this morning complains of a sensati on that he feels like he is falling when he tries to ambulate, still with difficult to voice words with intermittent cough and sensation of something stuck in his chest Hospitalist Physical - Physical exam Narrative exam: VITAL SIGNS: Reviewed. GENERAL: The patient appears normally developed, intermittent continuous coughing vital signs as documented. HEAD: No signs of head trauma. EYES: Pupils are equal. Extraocular motions intact. EARS: Hearing grossly intact. MOUTH: Oropharynx is normal. NECK: No adenopathy, no JVD. CHEST: Chest with diminished breath sounds bilaterally with mild bibasilar crackles. No wheezes, rales, or rhonchi. CARDIAC: Regular rate and rhythm. S1 and S2, without murmurs, gallops, or rubs. VASCULAR: No Edema. Peripheral pulses normal and equal in all extremities. ABDOMEN: Soft, non tender and non distended. No rebound or guarding, and no masses palpated. Bowel Sounds normal. MUSCULOSKELETAL: Good range of motion of all major joints. Extremities without clubbing, cyanosis or edema. NEUROLOGIC EXAM: Alert and oriented x 3 No focal sensory or strength deficits. Speech normal. Follows commands. PSYCHIATRIC: Mood normal. SKIN: detail exam as documented in skin assessment - Constitutional Vitals: Temp Pulse Resp BP Pulse Ox 98.0 F 78 16 114/79 98 12/16/20 03:50 12/16/20 03:50 12/16/20 03:50 12/16/20 03:50 12/16/20 03:50 General appearance: Present: mild distress HEART Score - HEART Score Troponin: Troponin T < 0.010 ng/mL (0.00-0.029) 12/12/20 08:31 Results - Labs CBC & Chem 7: 12/16/20 05:22 12/16/20 05:22 Labs: Laboratory Last Values WBC 10.2 K/mm3 (4.5-11.0) 12/16/20 05:22 RBC 5.36 M/mm3 (3.65-5.03) H 12/16/20 05:22 Hgb 15.4 gm/dl (11.8-15.2) H 12/16/20 05:22 Hct 46.2 % (35.5-45.6) H 12/16/20 05:22 MCV 86 fl (84-94) 12/16/20 05:22 MCH 29 pg (28-32) 12/16/20 05:22 MCHC 33 % (32-34) 12/16/20 05:22 RDW 13.2 % (13.2-15.2) 12/16/20 05:22 Plt Count 267 K/mm3 (140-440) 12/16/20 05:22 Lymph % (Auto) 12.7 % (13.4-35.0) L 12/13/20 05:10 [place] % (Auto) 7.4 % (0.0-7.3) H 12/13/20 05:10 Eos % (Auto) 0.0 % (0.0-4.3) 12/13/20 05:10 Baso % (Auto) 0.2 % (0.0-1.8) 12/13/20 05:10 Lymph # (Auto) 0.5 K/mm3 (1.2-5.4) L 12/13/20 05:10 [place] # (Auto) 0.3 K/mm3 (0.0-0.8) 12/13/20 05:10 Eos # (Auto) 0.0 K/mm3 (0.0-0.4) 12/13/20 05:10 Baso # (Auto) 0.0 K/mm3 (0.0-0.1) 12/13/20 05:10 Seg Neutrophils % 79.7 % (40.0-70.0) H 12/13/20 05:10 Seg Neutrophils # 3.2 K/mm3 (1.8-7.7) 12/13/20 05:10 D-Dimer 457.82 ng/mlDDU (0-234) H 12/12/20 16:59 Sodium 138 mmol/L (137-145) 12/16/20 05:22 Potassium 3.8 mmol/L (3.6-5.0) 12/16/20 05:22 Chloride 102.2 mmol/L (98-107) 12/16/20 05:22 Carbon Dioxide 23 mmol/L (22-30) 12/16/20 05:22 Anion Gap 17 mmol/L 12/16/20 05:22 BUN 22 mg/dL (9-20) H 12/16/20 05:22 Creatinine 1.0 mg/dL (0.8-1.3) 12/16/20 05:22 Estimated GFR > 60 ml/min 12/16/20 05:22 BUN/Creatinine Ratio 22 % 12/16/20 05:22 Glucose 98 mg/dL (75-100) 12/16/20 05:22 Lactic Acid 1.00 mmol/L (0.7-2.0) 12/12/20 16:59 Calcium 8.6 mg/dL (8.4-10.2) 12/16/20 05:22 Ferritin 2805.0 ng/mL (30.0-300.0) H 12/12/20 16:59 Lactate Dehydrogenase 331 units/L (91-180) H 12/12/20 16:59 Troponin T < 0.010 ng/mL (0.00-0.029) 12/12/20 08:31 C-Reactive Protein 4.70 mg/dL (0.00-1.30) H 12/12/20 16:59 Procalcitonin 0.06 ng/mL (<0.15) 12/12/20 16:59 Coronavirus (PCR) Positive (Negative) A 12/13/20 08:00 Microbiology: Microbiology 12/12/20 16:59 Peripheral/Venous Blood Culture - Preliminary NO GROWTH AFTER 72 HOURS 12/12/20 17:06 Peripheral/Venous Blood Culture - Preliminary NO GROWTH AFTER 72 HOURS Gutierrez/IV: Voiding Method Urinal Active Medications - Current Medications Current Medications: Generic Name Dose Route Start Last Admin Trade Name Freq PRN Reason Stop Dose Admin Acetaminophen 650 mg 12/12/20 16:50 12/12/20 21:44 Acetaminophen 325 Mg Tab PO 650 mg Q4H PRN Administration Pain MILD(1-3)/Fever >100.5/STEWART Albuterol 2.5 mg 12/12/20 16:50 Albuterol 2.5 Mg/3 Ml Nebu IH Q4HRT PRN Shortness Of Breath Alprazolam 0.5 mg 12/15/20 10:00 12/15/20 09:28 Alprazolam 0.5 Mg Tab PO 0.5 mg Q12HR PRN Administration Anxiety Ascorbic Acid 500 mg 12/12/20 22:00 12/16/20 09:43 Ascorbic Acid 500 Mg Tab PO 500 mg BID PRANAV Administration Cholecalciferol 1,000 unit 12/13/20 10:00 12/16/20 09:43 Cholecalciferol (Vit D3) 1000 Unit (25 Mcg) Tab PO 1,000 unit QDAY PRANAV Administration Dexamethasone 8 mg 12/14/20 10:00 12/16/20 09:43 Dexamethasone 4 Mg Tab PO 12/21/20 10:59 8 mg DAILY PRANAV Administration Docusate Sodium 100 mg 12/14/20 10:00 12/16/20 09:43 Docusate Sodium 100 Mg Cap PO 100 mg BID PRANAV Administration Fluticasone Propionate 100 mcg 12/15/20 10:00 12/16/20 09:43 Fluticasone Propionate Nasal [place] 16 Gm NS 100 mcg QDAY PRANAV Administration Furosemide 40 mg 12/16/20 12:00 Furosemide 40 Mg/4 Ml Inj IV QDAY PRANAV Heparin Sodium (Porcine) 5,000 unit 12/12/20 22:00 12/16/20 09:44 Heparin 5,000 Unit/1 Ml Vial SUB-Q 5,000 unit Q12H PRANAV Administration Hydrocodone Bit/Homatropine Methylb 10 ml 12/14/20 09:55 12/15/20 08:48 Hydrocodone/Homatropine 5-1.5mg /5 Ml Oral Liqd Unit Dose PO 10 ml Q6H PRN Administration Cough Hydromorphone HCl 0.5 mg 12/12/20 16:50 Hydromorphone 1 Mg/1 Ml Inj IV Q23H PRN Pain , Severe (7-10) Montelukast Sodium 10 mg 12/15/20 22:00 12/15/20 22:07 Montelukast 10 Mg Tab PO 10 mg QHS PRANAV Administration Ondansetron HCl 4 mg 12/12/20 16:50 Ondansetron 4 Mg/2 Ml Inj IV Q8H PRN Nausea And Vomiting Oxycodone/Acetaminophen 1 tab 12/12/20 16:50 12/14/20 08:34 Oxycodone /Acetaminophen 5-325mg Tab PO 1 tab Q16H PRN Administration Pain, Moderate (4-6) Sodium Chloride 10 ml 12/12/20 22:00 12/16/20 09:43 Sodium Chloride 0.9% 10 Ml Flush Syringe IV 10 ml BID PRANAV Administration Sodium Chloride 10 ml 12/12/20 16:50 Sodium Chloride 0.9% 10 Ml Flush Syringe IV PRN PRN LINE FLUSH Zinc Sulfate 220 mg 12/12/20 22:00 12/16/20 09:43 Zinc Sulfate 220 Mg Cap PO 220 mg BID PRANAV Administration
[2020-12-16] MEDS ORDERED: FUROSEMIDE 40 MG/4 ML INJ IV SCH (12:00)
[2020-12-16] MEDS: FUROSEMIDE 40 MG TAB PO SCH ×2 (12:08→20:31)
--- NOTE | 2020-12-16 13:28 | Progress Note ---
Assessment and Plan Impression: Acute hypoxic respiratory failure COVID-19 pneumonia, improving Recommendation: Improving pneumonia and oxygenation. Pulmonary garcia stable for discharge. Will require home oxygen therapy. Continue steroids for total of 10 days. Subjective Date of service: 12/16/20 Interval history: Patient reports improvement in his breathing. Currently on nasal cannula on 3 L. Objective - Exam Narrative Exam: VITAL SIGNS: Reviewed. GENERAL: The patient appears normally developed, intermittent continuous coughing vital signs as documented. HEAD: No signs of head trauma. EYES: Pupils are equal. Extraocular motions intact. EARS: Hearing grossly intact. MOUTH: Oropharynx is normal. NECK: No adenopathy, no JVD. CHEST: Chest with diminished breath sounds bilaterally with mild bibasilar crackles. No wheezes, rales, or rhonchi. CARDIAC: Regular rate and rhythm. S1 and S2, without murmurs, gallops, or rubs. VASCULAR: No Edema. Peripheral pulses normal and equal in all extremities. ABDOMEN: Soft, non tender and non distended. No rebound or guarding, and no masses palpated. Bowel Sounds normal. MUSCULOSKELETAL: Good range of motion of all major joints. Extremities without clubbing, cyanosis or edema. NEUROLOGIC EXAM: Alert and oriented x 3 No focal sensory or strength deficits. Speech normal. Follows commands. PSYCHIATRIC: Mood normal. SKIN: detail exam as documented in skin assessment Vital Signs - 12hr 12/16/20 12/16/20 03:50 10:00 Temperature 98.0 F Pulse Rate 78 Respiratory 16 20 Rate Blood Pressure 114/79 O2 Sat by Pulse 98 96 Oximetry Constitutional: no acute distress, alert Eyes: non-icteric Neck: supple Effort: normal Ascultation: Bilateral: clear CBC and BMP: 12/16/20 05:22 12/16/20 05:22 ABG, PT/INR, D-dimer: PT/INR, D-dimer D-Dimer 457.82 ng/mlDDU (0-234) H 12/12/20 16:59 Abnormal lab findings: Abnormal Labs 12/12/20 12/12/20 12/12/20 08:31 08:31 08:31 WBC RBC 6.07 H Hgb 17.8 H Hct 51.8 H Lymph % (Auto) 11.1 L [place] % (Auto) Lymph # (Auto) 0.8 L Seg Neutrophils % 81.5 H D-Dimer 570.82 H BUN Glucose 105 H Ferritin Lactate Dehydrogenase C-Reactive Protein Coronavirus (PCR) 12/12/20 12/12/20 12/12/20 16:59 16:59 16:59 WBC RBC Hgb Hct Lymph % (Auto) [place] % (Auto) Lymph # (Auto) Seg Neutrophils % D-Dimer 457.82 H BUN Glucose 146 H Ferritin 2805.0 H Lactate Dehydrogenase 331 H C-Reactive Protein 4.70 H Coronavirus (PCR) 12/13/20 12/13/20 12/13/20 05:10 05:10 08:00 WBC 4.0 L RBC 5.51 H Hgb 16.1 H Hct 47.5 H Lymph % (Auto) 12.7 L [place] % (Auto) 7.4 H Lymph # (Auto) 0.5 L Seg Neutrophils % 79.7 H D-Dimer BUN Glucose 181 H Ferritin Lactate Dehydrogenase C-Reactive Protein Coronavirus (PCR) Positive A 12/16/20 12/16/20 05:22 05:22 WBC RBC 5.36 H Hgb 15.4 H Hct 46.2 H Lymph % (Auto) [place] % (Auto) Lymph # (Auto) Seg Neutrophils % D-Dimer BUN 22 H Glucose Ferritin Lactate Dehydrogenase C-Reactive Protein Coronavirus (PCR)
[2020-12-16] MEDS: MONTELUKAST 10 MG TAB PO SCH (21:30)
[2020-12-16 23:05] VITALS: BP 126/92
--- NOTE | 2020-12-17 09:00 | Discharge Summary ---
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 Patient reports "it is hard for me to breathe". Patient states that he has experienced shortness of breath over the past 2 weeks with worsening symptoms over the past 2 days. Patient acknowledges chest discomfort associated with deep breathing, fatigue, malaise, decreased exercise tolerance, dry cough, diminished sense of smell, diminished sense of taste. Patient was seen and evaluated at [facility] 2 days ago and discharged home with outpatient therapy. Patient knowledges compliance with therapy with persistent and worsening symptoms. EMS was notified and upon arrival the patient was found to be in distress with a pulse oximetry of 82% on room air. The patient was placed on nonrebreather mask and transported to [facility] for further care and evaluation of the aforementioned symptoms. The patient was seen and evaluated in the emergency department. All lab and imaging studies reviewed. Chest x-ray and CT chest revealed bilateral pneumonia. Patient found to have a pulse oximetry of 82% on room air with exertion which is consistent with acute hypoxemic respiratory failure. Patient admitted to medical floor and initiated on pneumonia protocol as well as coronavirus protocol. Patient denies fever, chills, palpitation, skin rash, recent ill contacts, trauma, unilateral leg swelling, calf pain, prolonged travel/immobility, individual/family history of DVT/PE/bleeding/blood clotting disorders. No prior admission for review. No medication listed at time of admission for reconciliation. 12/13: CTA of the chest shows bilateral patchy opacities with no pulmonary embolism. D-dimer still elevated. His oxygen has come down to 2 L and satting 94% at rest in the room. Pulmonary and ID consulted we will continue steroid therapy at current dose. Anticipate discharge soon. Is probably out of the window for remdesivir at this time. Monitor inflammatory markers 12/14: Patient switched to p.o. steroids. Discharge plan for this morning was held due to continuous cough with near syncope. Will monitor for the next 24 hours patient will definitely need oxygen at home as he desatted to 86% on change in position without oxygen. We will also give Hydromet and incentive spirometer to recruit the lungs. 12/15: On examination today appears to have more anxiety than normal. Continue to encourage proning. Considering possible history of tobacco use although he denies it we will start him on Flomax and montelukast. We will check a D-dimer. Xanax has been started for anxiety as needed. We will repeat a walk test in a.m. I did review x-ray which I ordered this morning which shows that he has improvement in the patchy opacities. Continue steroids at this time to complete total of 10 days 12/16: Patient seen and examined resting comfortably although still with shortness of breath when he tries to ambulate. I have advised that he problems he verbalized understanding. He has not had any cardiac event and satting 98% on 2 L of oxygen but gets very dizzy on ambulation. While his blood pressure is stable we will give him some Lasix to see if this will help improve his ex ertional dyspnea we will also discontinue telemonitoring in anticipation for discharge tomorrow to encourage him prone. He verbalized understanding of treatment plan 12/17: Patient seen and examined, he is clinically stable, no new complaints. He has maintained his saturation on 2 liters of oxygen, he is to be discharged to continue isolation and mask wearing obtain his vaccine according to CDC guidelines I did also give him some primary care doctors to follow on coupon manifest clerk on the ID doctor outpatient. Also spoke to his family extensively and answered all their questions and concerns. He is also to get a pulse oximeter at home and monitor his oxygen status (1) Acute respiratory failure with hypoxia Current Visit: Yes Status: Acute Plan to address problem: Chest x-ray, CT chest, supplemental oxygen, pulse oximetry, nebulizer therapy, proposition while in bed, early ambulation, pulmonary toilet. (2) Coronavirus infection Current Visit: Yes Status: Acute Plan to address problem: Coronavirus protocol: IV antibiotic therapy, IV steroid therapy, supplemental oxygen, pulse oximetry, vitamin C therapy, vitamin D therapy, zinc therapy, prophylactic anticoagulation (3) COVID-19 vaccination not done Current Visit: Yes Status: Acute Plan to address problem: Patient counseled. (4) Near syncope likely secondary to deconditioning Disposition: 01 HOME / SELF CARE / HOMELESS Final Discharge Diagnosis (Prints w/discharge instructions): Acute respiratory failure with hypoxia Time spent for discharge: 35 mins Core Measure Documentation - Palliative Care Palliative Care/ Comfort Measures: Not Applicable - Core Measures Any of the following diagnoses?: none Exam - Physical Exam Narrative exam: VITAL SIGNS: Reviewed. GENERAL: The patient appears normally developed, intermittent continuous coughing vital signs as documented. HEAD: No signs of head trauma. EYES: Pupils are equal. Extraocular motions intact. EARS: Hearing grossly intact. MOUTH: Oropharynx is normal. NECK: No adenopathy, no JVD. CHEST: Chest with diminished breath sounds bilaterally with mild bibasilar crackles. No wheezes, rales, or rhonchi. CARDIAC: Regular rate and rhythm. S1 and S2, without murmurs, gallops, or rubs. VASCULAR: No Edema. Peripheral pulses normal and equal in all extremities. ABDOMEN: Soft, non tender and non distended. No rebound or guarding, and no masses palpated. Bowel Sounds normal. MUSCULOSKELETAL: Good range of motion of all major joints. Extremities without clubbing, cyanosis or edema. NEUROLOGIC EXAM: Alert and oriented x 3 No focal sensory or strength deficits. Speech normal. Follows commands. PSYCHIATRIC: Mood normal. SKIN: detail exam as documented in skin assessment - Constitutional Vitals: Temp Pulse Resp BP Pulse Ox 98.2 F 109 H 18 126/92 98 12/16/20 16:44 12/16/20 21:31 12/16/20 22:00 12/16/20 21:31 12/16/20 22:00 Plan Activity: advance as tolerated, fall precautions Diet: regular Special Instructions: record daily weights, record daily BP diary Plan of Treatment: Continue isolation precaution Take Eliquis for 15 days and have Primary doctor review if continued need Follow CDC guidelines for vaccination. Follow up with: KHOA VALADEZ MD [Staff Physician] - 3-5 Days TRIP DIETZ MD [Staff Physician] - 7 Days JUAN RIVERS MD [Staff Physician] - 7 Days VANESSA BULLARD MD [Staff Physician] - 7 Days Forms: Work/School Release Form Prescriptions: Montelukast [Singulair] 10 mg PO QHS #30 tablet dexAMETHasone [Dexamethasone] 6 mg PO DAILY #10 tablet Apixaban [Eliquis] 5 mg PO BID #30 tablet Fluticasone [Flonase] 100 mcg NS QDAY #1 bottle HYDROcodone/HOMATROP 5-1.5 [HYDROcodone-Homatropin 5-1.5 mg per 5 ML] 10 ml PO Q6H PRN #100 ml PRN Reason: Cough Ascorbic Acid [Vitamin C] 500 mg PO BID #60 tablet Cholecalciferol Vit D3 [Vitamin D3 1,000 UNIT TAB] 1,000 unit PO QDAY #30 tablet Zinc Sulfate 220 mg PO BID #30 capsule
[2020-12-17] MEDS: DEXAMETHASONE 4 MG TAB PO SCH (11:54)
[2020-12-17] MEDS: CHOLECALCIFEROL (VIT D3) 1000 UNIT (25 mcg) TAB PO SCH (11:55)
[2020-12-17] MEDS: ASCORBIC ACID 500 MG TAB PO SCH (11:55)
[2020-12-17] MEDS: ZINC SULFATE 220 MG CAP PO SCH (11:56)
[2020-12-17] MEDS: DOCUSATE SODIUM 100 MG CAP PO SCH (11:57)
[2020-12-17] MEDS: FLUTICASONE PROPIONATE NASAL SPRAY 16 GM NS SCH (11:57)
[2020-12-17] MEDS: HEPARIN 5,000 UNIT/1 ML VIAL SUB-Q SCH (11:57)
--- NOTE | 2020-12-17 13:45 | Progress Note ---
Assessment and Plan Impression: Acute hypoxic respiratory failure COVID-19 pneumonia, improving Recommendation: Improving pneumonia and oxygenation. Pulmonary garcia stable for discharge. Will require home oxygen therapy. Continue steroids for total of 10 days. Follow-up in office in 1 week Subjective Date of service: 12/17/20 Interval history: Patient reports improvement in his breathing. Currently on nasal cannula on 3 L. Patient is being discharged on home oxygen today. Objective - Exam Narrative Exam: VITAL SIGNS: Reviewed. GENERAL: The patient appears normally developed, intermittent continuous coughing vital signs as documented. HEAD: No signs of head trauma. EYES: Pupils are equal. Extraocular motions intact. EARS: Hearing grossly intact. MOUTH: Oropharynx is normal. NECK: No adenopathy, no JVD. CHEST: Chest with diminished breath sounds bilaterally with mild bibasilar crackles. No wheezes, rales, or rhonchi. CARDIAC: Regular rate and rhythm. S1 and S2, without murmurs, gallops, or rubs. VASCULAR: No Edema. Peripheral pulses normal and equal in all extremities. ABDOMEN: Soft, non tender and non distended. No rebound or guarding, and no masses palpated. Bowel Sounds normal. MUSCULOSKELETAL: Good range of motion of all major joints. Extremities without clubbing, cyanosis or edema. NEUROLOGIC EXAM: Alert and oriented x 3 No focal sensory or strength deficits. Speech normal. Follows commands. PSYCHIATRIC: Mood normal. SKIN: detail exam as documented in skin assessment Vital Signs - 12hr 12/17/20 10:00 O2 Sat by Pulse 95 Oximetry Constitutional: no acute distress, alert Eyes: non-icteric Neck: supple Effort: normal Ascultation: Bilateral: clear CBC and BMP: 12/16/20 05:22 12/16/20 05:22 ABG, PT/INR, D-dimer: PT/INR, D-dimer D-Dimer 457.82 ng/mlDDU (0-234) H 12/12/20 16:59 Abnormal lab findings: Abnormal Labs 12/12/20 12/12/20 12/12/20 08:31 08:31 08:31 WBC RBC 6.07 H Hgb 17.8 H Hct 51.8 H Lymph % (Auto) 11.1 L Hughes % (Auto) Lymph # (Auto) 0.8 L Seg Neutrophils % 81.5 H D-Dimer 570.82 H BUN Glucose 105 H Ferritin Lactate Dehydrogenase C-Reactive Protein Coronavirus (PCR) 12/12/20 12/12/20 12/12/20 16:59 16:59 16:59 WBC RBC Hgb Hct Lymph % (Auto) Hughes % (Auto) Lymph # (Auto) Seg Neutrophils % D-Dimer 457.82 H BUN Glucose 146 H Ferritin 2805.0 H Lactate Dehydrogenase 331 H C-Reactive Protein 4.70 H Coronavirus (PCR) 12/13/20 12/13/20 12/13/20 05:10 05:10 08:00 WBC 4.0 L RBC 5.51 H Hgb 16.1 H Hct 47.5 H Lymph % (Auto) 12.7 L Hughes % (Auto) 7.4 H Lymph # (Auto) 0.5 L Seg Neutrophils % 79.7 H D-Dimer BUN Glucose 181 H Ferritin Lactate Dehydrogenase C-Reactive Protein Coronavirus (PCR) Positive A 12/16/20 12/16/20 05:22 05:22 WBC RBC 5.36 H Hgb 15.4 H Hct 46.2 H Lymph % (Auto) Hughes % (Auto) Lymph # (Auto) Seg Neutrophils % D-Dimer BUN 22 H Glucose Ferritin Lactate Dehydrogenase C-Reactive Protein Coronavirus (PCR)
--- NOTE | 2020-12-20 10:17 | Electrocardiograph Report ---
[facility] Test Date: 2020-12-12 Test Time: 07:46:58 Pat Name: TEENA SHAH Department: Room: A357 Gender: M [employer] Operator: BHAVANA : 1970 Requested By: DINORA ACOSTA Order Number: [id number] Reading MD: Juan Mancera Measurements Intervals [place] Rate: 89 P: 31 HI: 132 QRS: 27 QRSD: 84 T: 167 QT: 372 QTc: 454 Interpretive Statements Sinus rhythm Consider old lateral infarct Abnormal T, consider ischemia, diffuse leads No previous ECG available for comparison Electronically Signed On 12-20-2020 10:16:45 EDT by Juan Mancera
== END 2020-12-17 14:00 | disposition home or self-care (01) | DRG 177 ==
LOC: ED 07:27 → 3A 16:50
PROVIDERS: ADMIT Internal Medicine; ATTEND Internal Medicine
DX: U07.1 COVID-19 (principal); J12.82 Pneumonia due to coronavirus disease 2019; J96.01 Acute respiratory failure with hypoxia; N18.9 Chronic kidney disease, unspecified; Z79.4 Long term (current) use of insulin; Z82.49 Family history of ischemic heart disease and other diseases of the circulatory system; E11.22 Type 2 diabetes mellitus with diabetic chronic kidney disease
CPT/HCPCS: 36415; 71045; 71046; 71275; 80048; 82140; 82728; 82947; 83615; 84145; 84484; 85025; 85027; 85379; 86140; 87040; 93005; 93970; 94760; G0378; J0456; J0696; J1100; J1644; J2405; J2920; J3010; J7030; J8540; Q9967; U0003